=== PATIENT | female | born 1970 | race Caucasian/White ===

== ENCOUNTER 2017-02-19 07:15 | Emergency (ER) | payer MEDICARE, OTHER ==
[~2017-02-19 07:15] MED LIST: LEVO50TA PO
[2017-02-19] MEDS ORDERED: IOHEXOL 300 MG/ML 75 ML VIAL. IV ONE (08:00)
[2017-02-19 08:03] LABS: BASO # 0.1 x10^3/uL (0.0-0.2); BASO % 1 % (0-3); EOS # 0.2 x10^3/uL (0.0-0.7); EOS % 3 % (0-3); HEMATOCRIT 43.3 % (36.0-47.0); HEMOGLOBIN 14.8 g/dL (12.0-15.5); LYMPH # 1.8 x10^3/uL (1.0-4.8); LYMPH % 25 % (24-48); MEAN CORPUSCULAR HEMOGLOBIN 32 pg (25-35); MEAN CORPUSCULAR HGB CONC 34 g/dL (31-37); MEAN CORPUSCULAR VOLUME 94 fL (79-100); MONO # 0.7 x10^3/uL (0.0-1.1); MONO % 10 % (0-9); NEUT # 4.2 x10^3uL (1.8-7.7); NEUT % 60 % (31-73); PLATELET COUNT 260 x10^3/uL (140-400); RED BLOOD COUNT 4.62 x10^6/uL (3.50-5.40); RED CELL DISTRIBUTION WIDTH 12.6 % (11.5-14.5)
--- NOTE | 2017-02-19 08:26 | ED.ADGEN ---
Past History Past Medical History: Hypothyroid, Other Additional Past Medical Histor: multiple sclerosis Past Surgical History: Tubal ligation, Other Smoking: Non-smoker Alcohol Use: Occasionally Drug Use: None Social History Narrative: Adult General Chief Complaint Chief Complaint Altered sensation left side of body HPI HPI Patient is a 46 year old female with a history of multiple sclerosis who presents with onset 6 AM while driving of twitching involving the left eyelid and mild to moderate altered sensation involving the left side of her face, arm , and leg that she describes as feeling like her body was dipped in warm water- - so altered sensation; no tingling or numbness: no headache or blurry vision or double vision; denies motor weakness involving the left arm or leg; was still able to drive with the symptoms; due to the altered sensation she does report some hesitancy and moving her arm and leg; symptoms are similar to a prior exacerbation of her MS. Denies any history of prior strokes. Is not on any maintenance medication for her MS. Denies fever chest pain cough abdominal pain nausea vomiting or diarrhea. Denies any slurred speech or difficulty walking. Review of Systems Review of Systems Constitutional: Denies fever or chills [] Eyes: Denies change in visual acuity, redness, or eye pain [] HENT: Denies nasal congestion or sore throat [] Respiratory: Denies cough or shortness of breath [] Cardiovascular: No additional information not addressed in HPI [] GI: Denies abdominal pain, nausea, vomiting, bloody stools or diarrhea [] : Denies dysuria or hematuria [] Musculoskeletal: Denies back pain or joint pain [] Integument: Denies rash or skin lesions [] Neurologic: Denies headache, focal weakness [] Endocrine: Denies polyuria or polydipsia [] All systems were reviewed and negative except as noted in history of present illness Family History Family History Noncontributory Current Medications Current Medications Current Medications Medications (Trade) Dose Ordered Sig/Zahra Start Time Stop Time Status Last Admin Dose Admin Acetaminophen (Tylenol) 1,000 mg 1X ONCE 02/19/17 10:00 02/19/17 10:01 02/19/17 09:27 1,000 MG Iohexol (Omnipaque 300 Mg/ml) 75 ml 1X ONCE 02/19/17 08:00 02/19/17 08:01 DC 02/19/17 08:06 75 ML Methylprednisolone Sodium Succinate 1000 mg/Sodium Chloride 100 ml @ 100 mls/hr 1X ONCE 02/19/17 10:15 02/19/17 11:14 Allergies Allergies Allergies Coded Allergies Type Severity Reaction Last Updated Verified Penicillins Allergy Intermediate 02/22/16 Yes Physical Exam Physical Exam Constitutional: Well developed, well nourished, no acute distress, non-toxic appearance. [] HENT: Normocephalic, atraumatic, bilateral external ears normal, oropharynx moist, no oral exudates, nose normal. [] Eyes: PERRLA, EOMI, conjunctiva normal, no discharge. No nystagmus [] Neck: Normal range of motion, no tenderness, supple, no stridor. [] Cardiovascular:Heart rate regular rhythm, no murmur [] Lungs & Thorax: Bilateral breath sounds clear to auscultation [] Abdomen: Bowel sounds normal, soft, no tenderness, no masses, no pulsatile masses. [] Skin: Warm, dry, no erythema, no rash. [] Back: No tenderness, no CVA tenderness. [] Extremities: No tenderness, no cyanosis, no clubbing, ROM intact, no edema. [] Neurologic: Alert and oriented X 3, normal motor function with equal watch dial maker strength and no pronator drift, altered sensory function involving the left face arm and leg the patient describes as a warm sensation but not numb or tingling--still feel being touched., no focal deficits noted. Finger to nose and heel to tapia are normal. No nystagmus on eye exam. Renal nerves II through XII are intact except for altered sensation to the left face. Gait initially not tested. [] Psychologic: Affect normal, judgement normal, mood normal. [] NIH score: 1 Current Patient Data Vital Signs Vital Signs Date Time Temp Pulse Resp B/P (MAP) Pulse Ox O2 Delivery O2 Flow Rate FiO2 02/19/17 09:20 77 12 152/111 (125) 99 Room Air 02/19/17 07:15 98.1 Lab Results Laboratory Tests Test 02/19/17 07:35 02/19/17 07:50 02/19/17 08:31 Glucose (Fingerstick) 110 mg/dL (70-99) H White Blood Count 7.0 x10^3/uL (4.0-11.0) Red Blood Count 4.62 x10^6/uL (3.50-5.40) Hemoglobin 14.8 g/dL (12.0-15.5) Hematocrit 43.3 % (36.0-47.0) Mean Corpuscular Volume 94 fL (79-100) Mean Corpuscular Hemoglobin 32 pg (25-35) Mean Corpuscular Hemoglobin Concent 34 g/dL (31-37) Red Cell Distribution Width 12.6 % (11.5-14.5) Platelet Count 260 x10^3/uL (140-400) Neutrophils (%) (Auto) 60 % (31-73) Lymphocytes (%) (Auto) 25 % (24-48) Monocytes (%) (Auto) 10 % (0-9) H Eosinophils (%) (Auto) 3 % (0-3) Basophils (%) (Auto) 1 % (0-3) Neutrophils # (Auto) 4.2 x10^3uL (1.8-7.7) Lymphocytes # (Auto) 1.8 x10^3/uL (1.0-4.8) Monocytes # (Auto) 0.7 x10^3/uL (0.0-1.1) Eosinophils # (Auto) 0.2 x10^3/uL (0.0-0.7) Basophils # (Auto) 0.1 x10^3/uL (0.0-0.2) Prothrombin Time 11.3 SEC (9.4-11.4) Prothrombin Time INR 1.1 (0.9-1.1) PTT 26 SEC (23-33) Total Bilirubin 0.9 mg/dL (0.2-1.0) Direct Bilirubin 0.1 mg/dL (0.0-0.2) Aspartate Amino Transferase (AST) 31 U/L (15-37) Alanine Aminotransferase (ALT) 37 U/L (14-59) Alkaline Phosphatase 108 U/L (46-116) Total Protein 7.7 g/dL (6.4-8.2) Albumin 3.8 g/dL (3.4-5.0) POC Urine HCG, Qualitative hcg negative (Negative) EKG EKG EKG shows normal sinus rhythm rate of 65 no STEMI normal axis QTC normal read by me at 080 3 AM [] Radiology/Procedures Radiology/Procedures CTA head and neck was read as negative per the radiology report. I did personally discuss the case with the radiologist. [] Course & Med Decision Making Course & Med Decision Making Pertinent Labs and Imaging studies reviewed. (See chart for details) 9:30 AM patient was able to ambulate without assistance. Per the nurse. 0 9:50 AM discussed case in detail with Dr. Natali Marrufo neurology who sees the patient. She recommends a prednisone taper 80 mg daily 10 days, 60 mg daily 3 days 40 mg daily 3 days 20 mg daily 3 days and follow-up in the office next available appointment. She agrees with the plan of care and does not feel the patient needs to be admitted or transferred at this time. I've counseled the patient regarding worsening MS symptoms and stroke symptoms and the important need for follow-up and compliance with her steroids. [] Final Impression Final Impression Multiple sclerosis exacerbation, altered sensation left face arm and leg [] Problems: Dragon Disclaimer Dragon Disclaimer This electronic medical record was generated, in whole or in part, using a voice recognition dictation system. MURIEL PATEL MD Feb 19, 2017 08:26
--- NOTE | 2017-02-19 08:29 | EKG ---
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
[2017-02-19 08:33] LABS: ALBUMIN 3.8 g/dL (3.4-5.0); TOTAL BILIRUBIN 0.9 mg/dL (0.2-1.0); TOTAL PROTEIN 7.7 g/dL (6.4-8.2)
--- NOTE | 2017-02-19 08:42 | RAD ---
CTA of the neck and head with contrast 02/19/2017 Clinical history: Numbness and weakness on left side since this morning. Technique: After the intravenous administration of 75 cc of Omnipaque 300, contiguous, 0.625 mm axial sections were obtained through the upper chest, neck and head. 0.5 mm reconstructed axial and multiplanar 3-D MIP and volume rendered 3-D reconstructed images were obtained. One or more of the following individualized dose reduction techniques were utilized for this study: 1. Automated exposure control. 2. Adjustment of the mA and/or kV according to patient size. 3. Use of iterative reconstruction technique. Stenosis calculations for CTA are based upon the NASCET methodology. Findings: Comparison is made to patient's CT scan of the head dated 02/21/2016. The visualized portions of the thoracic aortic arch are within normal limits. The origins of the brachiocephalic, left common carotid and left subclavian arteries are patent. The origin of the right common carotid artery is patent. The origins of both vertebral arteries are patent. The common carotid arteries are within normal limits bilaterally. Mild atherosclerotic/atherosclerotic plaque formation is seen involving both carotid bifurcations, right greater than left. No hemodynamically significant stenosis or area of occlusion is seen. The internal carotid arteries within the neck are within normal limits. No areas of stenosis or occlusion is seen. The right vertebral artery is dominant. Both vertebral arteries demonstrate normal antegrade flow. No area of stenosis or occlusion is seen. Intracranially the petrous, cavernous and supraclinoid portions of the internal carotid arteries are within normal limits. The basilar artery is patent. The anterior, middle and posterior cerebral arteries and their branches are within normal limits. No area of stenosis or occlusion is seen. No intracranial aneurysm is noted. The major dural venous sinuses are patent. No filling defect is seen. No abnormal area of contrast enhancement is seen involving the brain parenchyma. Small mucous retention cysts are seen involving the right maxillary sinus. No abnormal soft tissue mass is seen involving the neck. Degenerative changes are seen involving the uncovertebral and facet joints of the mid and lower cervical spine. Impression: 1. Mild atheromatous/atherosclerotic plaque formation is seen involving both carotid bifurcations, right greater than left. No hemodynamically significant stenosis is seen. 2. No intracranial stenosis or area of occlusion is seen.
[2017-02-19 08:49] LABS: DIRECT BILIRUBIN 0.1 mg/dL (0.0-0.2)
[2017-02-19] MEDS ORDERED: ACETAMINOPHEN 500 MG TABLET PO ONE ×2 (09:27→10:00)
[2017-02-19 10:01] LABS: CALCIUM 8.6 mg/dL (8.5-10.1); CREATININE 0.7 mg/dL (0.6-1.0); GFR 89.7
[2017-02-19 10:02] LABS: POTASSIUM 4.3 mmol/L (3.5-5.1)
[2017-02-19] MEDS ORDERED: methylPREDNISolone SOD SUCC 1,000 MG in IV NORMAL SALINE 100ML 100 ML IV ONE (10:15)
[2017-02-19 11:35] VITALS: BP 141/92
[2017-02-20 15:18] LABS: HEMOGLOBIN ISTAT 14.3 gm/dL
[2017-02-21 11:30] LABS: POTASSIUM ISTAT 6.1 mmol/L (3.5-5.0)
== END 2017-02-19 11:35 | disposition home or self-care (01) ==
LOC: ER 07:15
DX: G35 Multiple sclerosis (principal); R20.2 Paresthesia of skin; E03.9 Hypothyroidism, unspecified; Z88.0 Allergy status to penicillin
CPT/HCPCS: 36415; 70496; 70498; 80048; 80076; 81025; 82947; 85027; 85610; 85730; 93005; 96365; 99285; J2930; Q9967; 80047

== ENCOUNTER 2018-03-09 04:53 | Observation (INO) | payer MEDICARE, OTHER ==
[~2018-03-09] VITALS: Ht 167.6 cm; Wt 91.8 kg
--- NOTE | 2018-03-09 04:55 | ED.ADGEN ---
Past History Past Medical History: Hypothyroid, Other Additional Past Medical Histor: multiple sclerosis Past Surgical History: Tubal ligation, Other Smoking: Non-smoker Alcohol Use: Occasionally Drug Use: None Adult General Chief Complaint Chief Complaint " I woke up chest pain.. here on the Lt... side of my chest... it been going on about 1 1/2 of pain now..." " It is like I got a elbow riding on my chest..wall. HPI HPI Patient is a 47 year old female who presents with above hx and complaints of Lt. chest wall pain. Pt. denies any trauma. Patient denies any coughing or history of fevers. Patient denies previous history of DVT or pulmonary embolisms. Patient does have significant history of MS. Recent travel. No specific ill contacts. Patient not currently on steroids. Patient normally follows with Dr. Simon Review of Systems Review of Systems Constitutional: Denies fever or chills [] Eyes: Denies change in visual acuity, redness, or eye pain [] HENT: Denies nasal congestion or sore throat [] Respiratory: Denies cough or shortness of breath [] Cardiovascular: No additional information not addressed in HPI [] GI: Denies abdominal pain, nausea, vomiting, bloody stools or diarrhea [] : Denies dysuria or hematuria [] Musculoskeletal: Denies back pain or joint pain [] Pain behind Lt leg Integument: Denies rash or skin lesions [] Neurologic: Denies headache, focal weakness or sensory changes [] Endocrine: Denies polyuria or polydipsia [] All other systems were reviewed and found to be within normal limits, except as documented in this note. Family History Family History Adopted- does not know family history Current Medications Current Medications Current Medications Medications (Trade) Dose Ordered Sig/Zahra Start Time Stop Time Status Last Admin Dose Admin Aspirin (Children'S Aspirin) 324 mg 1X ONCE 03/09/18 05:30 03/09/18 05:31 DC 03/09/18 05:30 324 MG Enoxaparin Sodium (Lovenox 100mg Syringe) 100 mg 1X ONCE 03/09/18 05:30 03/09/18 05:31 DC 03/09/18 05:30 100 MG Info (Do NOT chart on this entry -- for MONITORING) 1 each PRN DAILY PRN 03/09/18 05:30 03/09/18 16:41 DC Iohexol (Omnipaque 300 Mg/ml) 75 ml 1X ONCE 03/09/18 05:30 03/09/18 05:31 DC 03/09/18 05:34 75 ML Lactated Ringer's 1,000 ml @ 1,000 mls/hr Q1H 03/09/18 05:30 03/09/18 06:29 DC 03/09/18 06:02 1,000 MLS/HR Allergies Allergies Allergies Coded Allergies Type Severity Reaction Last Updated Verified Penicillins Allergy Intermediate 02/22/16 Yes Physical Exam Physical Exam Constitutional: , moderate distress, non-toxic appearance. [] HENT: Normocephalic, atraumatic, bilateral external ears normal, oropharynx moist, no oral exudates, nose normal. [] Eyes: PERRLA, EOMI, conjunctiva normal, no discharge. [] Neck: Normal range of motion, no tenderness, supple, no stridor. [] Cardiovascular:Heart rate regular rhythm, no murmur [] Lungs & Thorax: Bilateral breath sounds equal at apex on auscultation []does have chest wall tenderness on left side of chest with deep breaths. Abdomen: Bowel sounds normal, soft, no tenderness, no masses, no pulsatile masses. [] Skin: Warm, dry, no erythema, no rash. [] Back: No tenderness, no CVA tenderness. [] Extremities: Area behind left leg is tender - popiteal cyst vs DVT? vs varicosity, , no cyanosis, no clubbing, ROM intact, no edema. [] Neurologic: Alert and oriented X 3, normal motor function, normal sensory function, no focal deficits noted. [] Psychologic: Affect anxious, judgement normal, mood normal. [] Current Patient Data Vital Signs Vital Signs Date Time Temp Pulse Resp B/P (MAP) Pulse Ox O2 Delivery O2 Flow Rate FiO2 03/09/18 05:45 69 14 160/92 (114) 96 Room Air 03/09/18 04:56 98.0 Lab Results Laboratory Tests Test 03/09/18 05:10 White Blood Count 5.3 x10^3/uL (4.0-11.0) Red Blood Count 4.59 x10^6/uL (3.50-5.40) Hemoglobin 14.0 g/dL (12.0-15.5) Hematocrit 41.8 % (36.0-47.0) Mean Corpuscular Volume 91 fL (79-100) Mean Corpuscular Hemoglobin 31 pg (25-35) Mean Corpuscular Hemoglobin Concent 34 g/dL (31-37) Red Cell Distribution Width 15.0 % (11.5-14.5) H Platelet Count 247 x10^3/uL (140-400) Neutrophils (%) (Auto) 45 % (31-73) Lymphocytes (%) (Auto) 38 % (24-48) Monocytes (%) (Auto) 12 % (0-9) H Eosinophils (%) (Auto) 3 % (0-3) Basophils (%) (Auto) 1 % (0-3) Neutrophils # (Auto) 2.4 x10^3uL (1.8-7.7) Lymphocytes # (Auto) 2.0 x10^3/uL (1.0-4.8) Monocytes # (Auto) 0.7 x10^3/uL (0.0-1.1) Eosinophils # (Auto) 0.2 x10^3/uL (0.0-0.7) Basophils # (Auto) 0.1 x10^3/uL (0.0-0.2) Erythrocyte Sedimentation Rate 16 (0-25) Prothrombin Time 11.4 SEC (9.4-11.4) Prothrombin Time INR 1.1 (0.9-1.1) PTT 25 SEC (23-33) D-Dimer (Celena) 0.45 mg/L (0.00-0.50) Sodium Level 140 mmol/L (136-145) Potassium Level 3.5 mmol/L (3.5-5.1) Chloride Level 106 mmol/L (98-107) Carbon Dioxide Level 31 mmol/L (21-32) Anion Gap 3 (6-14) L Blood Urea Nitrogen 6 mg/dL (7-20) L Creatinine 0.7 mg/dL (0.6-1.0) Estimated GFR (Cockcroft-Gault) 89.3 Glucose Level 151 mg/dL (70-99) H Calcium Level 8.7 mg/dL (8.5-10.1) Magnesium Level 2.1 mg/dL (1.8-2.4) Total Bilirubin 0.7 mg/dL (0.2-1.0) Direct Bilirubin 0.2 mg/dL (0.0-0.2) Aspartate Amino Transferase (AST) 51 U/L (15-37) H Alanine Aminotransferase (ALT) 58 U/L (14-59) Alkaline Phosphatase 149 U/L (46-116) H Creatine Kinase 113 U/L (26-192) Creatine Kinase MB (Mass) 0.9 ng/mL (0.0-3.6) Creatine Kinase MB Relative Index 0.8 % (0-4) Troponin I Quantitative < 0.017 ng/mL (0-0.055) C-Reactive Protein 8.2 mg/L (0-3.3) H IC-Vab-V-Type Natriuretic Peptide 20 pg/mL (0-124) Total Protein 7.1 g/dL (6.4-8.2) Albumin 3.5 g/dL (3.4-5.0) Triglycerides Level 191 mg/dL (0-150) H Cholesterol Level 251 mg/dL (0-200) H LDL Cholesterol, Calculated 173 mg/dL (0-100) H VLDL Cholesterol, Calculated 38 mg/dL (0-40) Non-HDL Cholesterol Calculated 211 mg/dL (0-129) H HDL Cholesterol 40 mg/dL (40-60) Cholesterol/HDL Ratio 6.0 Lipase 198 U/L (73-393) Thyroid Stimulating Hormone (TSH) 6.435 uIU/mL (0.358-3.740) EKG EKG I interpretation of EKG shows a sinus rhythm at 67 bpm with no acute morphology changes[] Radiology/Procedures Radiology/Procedures My interpretation of chest x-ray shows[]no acute cardiopul. changes. CT of Chest and US legs pending at time of admission. Course & Med Decision Making Course & Med Decision Making Pertinent Labs and Imaging studies reviewed. (See chart for details) Discussed presentation, testing and t.x plan with Dr. Romero- will admit for further eval and tx.- Cardiology consult. [] Final Impression Final Impression 1. Chest Pain[] 2. HTN 3. MS 4. Hypothyroid 5. Elevated Lipids 6. DM Dragon Disclaimer Dragon Disclaimer This electronic medical record was generated, in whole or in part, using a voice recognition dictation system. HERMINIA CAUSEY MD Mar 09, 2018 04:55
[2018-03-09] MEDS ORDERED: CONTRAST GIVEN MC PRN (05:30)
[2018-03-09] MEDS ORDERED: ENOXAPARIN ** NOTE DOSE ** SYRINGE SQ ONE (05:30)
[2018-03-09] MEDS ORDERED: IV RINGERS SOLUTION,LACTATED 1,000 ML IV SCH (05:30)
[2018-03-09] MEDS ORDERED: ASPIRIN 81 MG TAB.CHEW PO ONE (05:30)
[2018-03-09] MEDS ORDERED: IOHEXOL 300 MG/ML 75 ML VIAL. IV ONE (05:30)
[2018-03-09 05:41] LABS: BASO # 0.1 x10^3/uL (0.0-0.2); BASO % 1 % (0-3); EOS # 0.2 x10^3/uL (0.0-0.7); EOS % 3 % (0-3); HEMATOCRIT 41.8 % (36.0-47.0); LYMPH % 38 % (24-48); MEAN CORPUSCULAR HEMOGLOBIN 31 pg (25-35); MEAN CORPUSCULAR HGB CONC 34 g/dL (31-37); MEAN CORPUSCULAR VOLUME 91 fL (79-100); MONO # 0.7 x10^3/uL (0.0-1.1); MONO % 12 % (0-9); NEUT # 2.4 x10^3uL (1.8-7.7); NEUT % 45 % (31-73); PLATELET COUNT 247 x10^3/uL (140-400); RED BLOOD COUNT 4.59 x10^6/uL (3.50-5.40); WHITE BLOOD COUNT 5.3 x10^3/uL (4.0-11.0)
[2018-03-09] MEDS ORDERED: MORPHINE SULFATE 2 MG/ML DISP.SYRIN. IV PRN (06:15)
[2018-03-09] MEDS ORDERED: NITROGLYCERIN OINT 1 GM PACKET. TP ONE ×2 (06:15)
[2018-03-09 06:19] LABS: ALBUMIN 3.5 g/dL (3.4-5.0); C REACTIVE PROTEIN 8.2 mg/L (0-3.3); CALCIUM 8.7 mg/dL (8.5-10.1); CREATININE 0.7 mg/dL (0.6-1.0); DIRECT BILIRUBIN 0.2 mg/dL (0.0-0.2); GFR 89.3; MAGNESIUM 2.1 mg/dL (1.8-2.4); POTASSIUM 3.5 mmol/L (3.5-5.1); TOTAL BILIRUBIN 0.7 mg/dL (0.2-1.0); TOTAL PROTEIN 7.1 g/dL (6.4-8.2)
--- NOTE | 2018-03-09 06:21 | EKG ---
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
--- NOTE | 2018-03-09 06:26 | RAD ---
INDICATION: [id number] Omni 300 75cc PE protocol: Chest pain, short of air, weakness. Hx: MS COMPARISON: None. TECHNIQUE: Axial CT images obtained through the chest. Intravenous contrast utilized. Angiogram 3D images processed per protocol. One or more of the following individualized dose reduction techniques were utilized for this examination: 1. Automated exposure control; 2. Adjustment of the mA and/or kV according to patient size; 3. Use of iterative reconstruction technique. FINDINGS: Mild scattered cystic changes of lungs. There are couple sub-4 mm pulmonary nodules in the right lower lung anteriorly. Mild patchy groundglass opacities. Visualized portion of liver is low-attenuation. Nonspecific but can be seen with fatty infiltration. A ascending thoracic aorta measures up to approximately 35 mm. Motion obscures a portion of the ascending thoracic aorta but no definite thoracic aortic dissection seen. Degenerative changes of the spine. No central pulmonary embolus. IMPRESSION: No central pulmonary embolus. Mild patchy groundglass opacities. Could be from hypoventilatory changes but mild regions of airway inflammation not excluded. Couple of sub-4 mm pulmonary nodules. Fleischner Society recommendations for solitary solid lung nodule follow up.: In a low risk patient: <6mm - No follow up required. 6-8mm - 6-[address], then CT at 18-24 months. >8mm - CT at 3 months, PET/CT or tissue sampling. In a high risk patient (history of smoking or other known risk factors): <6mm - Follow up CT at 12 months. 6-8mm - 6-[address], then CT at 18-24 months. >8mm - CT at 3 months, PET/CT or tissue sampling. Fleischner Society recommendations for multiple solid lung nodule follow up.: In a low risk patient: <6mm - No follow up required. 6-8mm - 3-[address], then CT at 18-24 months. >8mm - CT at 3-6 months, then at 18-24 months. PET/CT or tissue sampling based on most suspicious nodule. In a high risk patient (history of smoking or other known risk factors): <6mm - Follow up CT at 12 months. 6-8mm - 3-[address], then CT at 18-24 months. >8mm - CT at 3-6 months, PET/CT or tissue sampling option based on most suspicious nodule. Electronically signed by: Eb Michale MD (03/09/2018 6:23 AM) [facility]
[2018-03-09] MEDS ORDERED: MORPHINE SULFATE 4 MG/ML DISP.SYRIN. IV ONE (06:30)
[2018-03-09 06:37] LABS: SEDIMENTATION RATE 16 (0-25)
--- NOTE | 2018-03-09 07:30 | NUR ---
The patient, JAVIER ROSALES, 47 y/o, F admitted by FRIDA CAROLINA MD, was given written information regarding hospital policies, unit procedures and contact persons. Valuables were checked and left in room. Patient alert and oriented x3, able to make needs known. Denies complaints at this time. States she had chest pain that awakened her out of her sleep. Awaiting cardiology and Hospitalist to see patient. Pt able to verbalize POC, will continue to monitor.
--- NOTE | 2018-03-09 07:47 | RAD ---
Chest radiograph 03/09/2018 5:02 AM INDICATION: Chest pain, shortness of air COMPARISON: Chest radiograph February 21, 2016 TECHNIQUE: Frontal and lateral views of the chest are provided. FINDINGS: The cardiomediastinal silhouette is within normal limits. There are no pleural effusions. There is no pulmonary vascular congestion. There is no pneumothorax. The lungs are clear. No significant osseous abnormality is identified. IMPRESSION: No acute cardiopulmonary process. Electronically signed by: Natalia Hall MD (03/09/2018 7:44 AM) [facility]
[2018-03-09 07:52] VITALS: BP 126/86
--- NOTE | 2018-03-09 08:00 | NUR ---
Echo ordered and Cardiology consulted for Chest pressure. Patient resting comfortably in bed at this time.
[2018-03-09] MEDS ORDERED: ASPIRIN 81 MG TAB.CHEW PO SCH (09:00)
--- NOTE | 2018-03-09 09:55 | PDOC2 ---
JAMES COVINGTON APRN 03/09/18 0955: CONSULT Date of Admission DATE: 03/09/18 TIME: 09:53 Reason for Consult: cp Problem List Problems Medical Problems: (1) Chest pain Status: Acute History of Present Illness Ms Grady is a 47 year old female who presented to the ED with complaints of chest pain. She reports onset at rest, actually woke with discomfort. She describes a sharp pain ("stich") in her left side followed by pressure in her left chest. She reports some increase with deep inspiration but no increase with exertion. She denies any associated symptoms. She reports nitro paste placed without any improvement but some improvement with morphine. She reports some mild reproducible discomfort in left upper chest with palpation but says this discomfort is different. The left lateral pain is resolved. She denies any dyspnea, palpitations, congestive symptoms or edema. She denies any presyncope or syncope. She does report dizziness with balance problems for which she takes meclizine regularly. She denies any issues with functional capacity except related to balance issues. She does admit that she has not been as active due to this and due to the heat. She does have stairs in house that she denies any symptoms with walking up and down. Past Medical History MS and hypothyroidism CENTRAL NERVOUS SYSTEM: Vertigo Musculoskeletal: Other (Degenerative disc disease lower c spine) Past Surgical History: Tubal Ligation, Tonsillectomy, Other (knee surgery) Family History unknown as she is adopted Social History , no smoking, no significant ETOH, no illicit drugs Current Medications Home medications include Synthroid, Aubagio, Zoloft, Cetrizine and Meclizine Current Medications Aspirin (Children'S Aspirin) 324 mg 1X ONCE PO Last administered on 03/09/18at 05:30; Start 03/09/18 at 05:30; Stop 03/09/18 at 05:31; Status DC Enoxaparin Sodium (Lovenox 100mg Syringe) 100 mg 1X ONCE SQ Last administered on 03/09/18at 05:30; Start 03/09/18 at 05:30; Stop 03/09/18 at 05:31; Status DC Lactated Ringer's 1,000 ml @ 1,000 mls/hr Q1H IV Last administered on at 06:02; Start 03/09/18 at 05:30; Stop 03/09/18 at 06:29; Status DC Iohexol (Omnipaque 300 Mg/ml) 75 ml 1X ONCE IV Last administered on 03/09/18at 05:34; Start 03/09/18 at 05:30; Stop 03/09/18 at 05:31; Status DC Info (Do NOT chart on this entry -- for MONITORING) 1 each PRN DAILY PRN MC SEE COMMENTS; Start 03/09/18 at 05:30; Stop 03/11/18 at 05:29 Nitroglycerin (Nitro-Bid Oint) 1 inch 1X ONCE TP Last administered on at 06:12; Start 03/09/18 at 06:15; Stop 03/09/18 at 06:16; Status DC Nitroglycerin (Nitro-Bid Oint) 1 inch 1X ONCE TP ; Start 03/09/18 at 06:15; Stop 03/09/18 at 06:16; Status UNV Morphine Sulfate (Morphine 4mg Syringe) 4 mg 1X ONCE IV Last administered on at 06:32; Start 03/09/18 at 06:30; Stop 03/09/18 at 06:31; Status DC Morphine Sulfate (Morphine 2mg Syringe) 2 mg PRN Q2HR PRN IV PAIN; Start at 06:15; Stop 03/10/18 at 06:14 Enoxaparin Sodium (Lovenox 100mg Syringe) 100 mg BID SQ ; Start 03/09/18 at 21:00 ; Stop 03/09/18 at 21:00; Status DC Nitroglycerin (Nitro-Bid Oint) 1 inch Q8HRS TP ; Start 03/09/18 at 14:00 Aspirin (Children'S Aspirin) 81 mg DAILY PO ; Start 03/09/18 at 09:00 Enoxaparin Sodium (Lovenox 100mg Syringe) 90 mg BID SQ ; Start 03/09/18 at 21:00 Active Scripts Active Synthroid (Levothyroxine Sodium) 50 Mcg Tablet 1 Tab PO DAILY Allergies: Coded Allergies: Penicillins (Verified Allergy, Intermediate, 02/22/16) Review of System as per HPI General: Alert, Oriented X3, Cooperative, No acute distress HEENT: Atraumatic, EOMI, Mucous membr. moist/pink Lungs: Clear to auscultation, Normal air movement Heart: Regular rate, Normal S1, Normal S2, Other (no gallops, clicks or rubs) Abdomen: Normal bowel sounds, Soft, No tenderness Extremities: No cyanosis, No edema, Normal pulses Neuro: Normal speech, Strength at 5/5 X4 ext Psych/Mental Status: Mental status NL, Mood NL VITALS Vital Signs Date Time Temp Pulse Resp B/P (MAP) Pulse Ox O2 Delivery O2 Flow Rate FiO2 03/09/18 07:52 98.3 63 20 126/86 (99) 93 Room Air Labs Laboratory Tests Test 03/09/18 05:10 White Blood Count 5.3 x10^3/uL (4.0-11.0) Red Blood Count 4.59 x10^6/uL (3.50-5.40) Hemoglobin 14.0 g/dL (12.0-15.5) Hematocrit 41.8 % (36.0-47.0) Mean Corpuscular Volume 91 fL (79-100) Mean Corpuscular Hemoglobin 31 pg (25-35) Mean Corpuscular Hemoglobin Concent 34 g/dL (31-37) Red Cell Distribution Width 15.0 % (11.5-14.5) Platelet Count 247 x10^3/uL (140-400) Neutrophils (%) (Auto) 45 % (31-73) Lymphocytes (%) (Auto) 38 % (24-48) Monocytes (%) (Auto) 12 % (0-9) Eosinophils (%) (Auto) 3 % (0-3) Basophils (%) (Auto) 1 % (0-3) Neutrophils # (Auto) 2.4 x10^3uL (1.8-7.7) Lymphocytes # (Auto) 2.0 x10^3/uL (1.0-4.8) Monocytes # (Auto) 0.7 x10^3/uL (0.0-1.1) Eosinophils # (Auto) 0.2 x10^3/uL (0.0-0.7) Basophils # (Auto) 0.1 x10^3/uL (0.0-0.2) Erythrocyte Sedimentation Rate 16 (0-25) Prothrombin Time 11.4 SEC (9.4-11.4) Prothromb Time International Ratio 1.1 (0.9-1.1) Activated Partial Thromboplast Time 25 SEC (23-33) D-Dimer (Celena) 0.45 mg/L (0.00-0.50) Sodium Level 140 mmol/L (136-145) Potassium Level 3.5 mmol/L (3.5-5.1) Chloride Level 106 mmol/L (98-107) Carbon Dioxide Level 31 mmol/L (21-32) Anion Gap 3 (6-14) Blood Urea Nitrogen 6 mg/dL (7-20) Creatinine 0.7 mg/dL (0.6-1.0) Estimated GFR (Cockcroft-Gault) 89.3 Glucose Level 151 mg/dL (70-99) Calcium Level 8.7 mg/dL (8.5-10.1) Magnesium Level 2.1 mg/dL (1.8-2.4) Total Bilirubin 0.7 mg/dL (0.2-1.0) Direct Bilirubin 0.2 mg/dL (0.0-0.2) Aspartate Amino Transf (AST/SGOT) 51 U/L (15-37) Alanine Aminotransferase (ALT/SGPT) 58 U/L (14-59) Alkaline Phosphatase 149 U/L (46-116) Creatine Kinase 113 U/L (26-192) Creatine Kinase MB (Mass) 0.9 ng/mL (0.0-3.6) Creatine Kinase MB Relative Index 0.8 % (0-4) Troponin I Quantitative < 0.017 ng/mL (0-0.055) C-Reactive Protein 8.2 mg/L (0-3.3) EK-Ejh-Z-Type Natriuretic Peptide 20 pg/mL (0-124) Total Protein 7.1 g/dL (6.4-8.2) Albumin 3.5 g/dL (3.4-5.0) Lipase 198 U/L (73-393) Images EKG - sinus rhythm, nonspecific st/t changes CTA chest - IMPRESSION: No central pulmonary embolus. Mild patchy groundglass opacities. Could be from hypoventilatory changes but mild regions of airway inflammation not excluded. Couple of sub-4 mm pulmonary nodules. Assessment/Plan 1. Chest pain - serial enzymes, check lipids, check echo, Aspirin. Further recs after results. 2. hypertension - elevated blood pressure on admission to ED. No history of hypertension and blood pressures controlled since admission. Await echo. 3. unknown lipid status - check lipids 4. multiple sclerosis - per PCP 5. vertigo - per PCP VALERIY LO MD 03/09/18 1640: CONSULT Assessment/Plan Patient seen and examined. Agree with METAL CHECKER's assessment and plan. Chest pain with atypical features. Myocardial infarction ruled out. 2-D echo showed normal LV function without any wall motion abnormalities. Plan for Lexiscan nuclear stress test as an outpatient. Thank you for your consultation. JAMES COVINGTON APRN Mar 09, 2018 09:55 VALERIY LO MD Mar 09, 2018 16:40
[2018-03-09] MEDS ORDERED: TERI14TA PO (10:11)
[2018-03-09] MEDS ORDERED: SERT50TA8 PO (10:11)
[2018-03-09] MEDS ORDERED: CETI10TA16 PO (10:11)
[2018-03-09] MEDS ORDERED: LEVO75TA5 PO (10:11)
[2018-03-09] MEDS ORDERED: MECL12.52 PO (10:11)
[2018-03-09 10:30] VITALS: BP 104/65
[2018-03-09] MEDS ORDERED: MORPHINE SULFATE 4 MG/ML DISP.SYRIN. IV PRN (10:30)
[2018-03-09] MEDS ORDERED: KETOROLAC 30 MG/ML VIAL. IV ONE (10:30)
--- NOTE | 2018-03-09 11:22 | NUR ---
Patient resting comfortably at this time, denies complaints of chest pain or pressures states that she is just tired now.
[2018-03-09 12:31] LABS: AMPHETAMINE/METHAMPHETAMINE NEG (NEG); BARBITURATES NEG (NEG); BENZODIAZEPINES NEG (NEG); CANNABINOIDS NEG (NEG); COCAINE NEG (NEG); METHADONE NEG (NEG); OPIATES POS (NEG); PHENCYCLIDINE NEG (NEG)
[2018-03-09 12:32] LABS: BILIRUBIN,URINE NEG (NEG); CLARITY,URINE CLEAR; COLOR,URINE YELLOW; GLUCOSE,URINE NEG (NEG)
[2018-03-09 12:33] LABS: BACTERIA,URINE FEW /HPF (0-FEW); NITRITE,URINE NEG (NEG); RBC,URINE 0 /HPF (0-2); SQUAMOUS EPITHELIAL CELL,UR FEW /LPF; UROBILINOGEN,URINE 0.2 mg/dL (0.2 mg/dL)
--- NOTE | 2018-03-09 12:47 | HP ---
ADMIT DATE: 03/09/2018 HISTORY OF PRESENT ILLNESS: The patient is a 47-year-old female patient who came to the Emergency Room complaining of chest pain that woke her up that apparently has been going on for almost 1 and half hour prior to arrival to the Emergency Room. She describes it as if she is having an elbow riding on her chest wall that she rated 6/10 in severity. Denied any nausea or vomiting. Denied any shortness of breath. Denied any radiation to the left arm, left shoulder, or left side of the neck or jaw. When I saw her, she continued to have ongoing pain that apparently was improved with nitro paste. She was evaluated in the Emergency Room. Her EKG showed that she was in sinus rhythm at 67 beats per minute with no acute morphology changes. Her chest x-ray was unremarkable and her CT scan of the chest with CT angio of the chest showed that there is no central pulmonary emboli. Mild patchy ground glass opacities could be from hypoventilatory changes and mild regions of airway inflammation not excluded. The patient was admitted. Her first set of cardiac enzymes showed the troponin to be less than 0.017. The patient was admitted to the ICU to do 2 more sets of cardiac enzymes, to consult the crew car driver, and check her fasting lipid profile. PAST MEDICAL HISTORY: Significant for multiple sclerosis diagnosed in 1992. The patient, however, still ambulatory and she walks with a cane. She is known to have hypothyroidism; however, she does not have any of the major risk factors for coronary artery disease, namely she is not diabetic, she has no hypertension or hyperlipidemia or at least she is not known to have hyperlipidemia. PAST SURGICAL HISTORY: Significant for right knee surgery, tubal ligation, and tonsillectomy. ALLERGIES: She is allergic to PENICILLIN. MEDICATIONS: She is currently on the following medications: Cetirizine 10 mg once a day. She is on sertraline 50 mg at bedtime, meclizine 12.5 mg at bedtime, levothyroxine sodium 75 mg daily, and she is Aubagio 14 mg tablet at bedtime. FAMILY HISTORY: She has 5 biological sisters, all younger and all of them have thyroid disease. Her mother is alive at the age of 65 and apparently healthy. She does not know her biological father. SOCIAL HISTORY: She is , has 5 sons. She does not smoke, drink alcohol, or use recreational drugs. She is currently on disability. REVIEW OF SYSTEMS: The patient denied any blurring of vision, cataract, glaucoma, or macular degeneration. Denied any earache, tinnitus, or sensorineural deafness. Denied any nosebleeds, stuffy nose, or postnasal drip. Denied any sore throat, sore tongue, toothache, hoarseness of voice, or difficulty swallowing. Denied any nausea, vomiting, diarrhea, or constipation. Denied any hematemesis, melena, or hematochezia. Denied any dysuria, frequency, or hematuria. Did complain of chest pain. Denied any shortness of breath, orthopnea, paroxysmal nocturnal dyspnea. Denied any cough, phlegm, or hemoptysis. Denied any chills, rigors, or fever. PHYSICAL EXAMINATION: GENERAL: On arrival to the Emergency Room, she looked well and was clearly in no apparent respiratory distress. No pallor, jaundice, cyanosis, or thyromegaly. No jugular venous distention. No limb edema. VITAL SIGNS: Her heart rate was 68, blood pressure was 160/90, temperature was 98, respiratory rate 20, and oxygen saturation was 96% on room air. HEAD, EYES, EARS, NOSE, AND THROAT: Showed normocephalic, atraumatic. NECK: Supple. HEART: Showed normal first and second sounds. No gallop, rub, or murmur. CHEST: Clear to auscultation. No crepitation or rhonchi. ABDOMEN: Distended, soft, nontender. NEUROLOGIC: She is awake, alert, responding appropriately. All cranial nerves intact. She moves extremities without difficulty. She is able to walk with a cane. LABORATORY DATA: Her lab work showed a white cell count of 5300, hemoglobin 14, hematocrit 42, MCV 91, and platelet count 247,000. Serum sodium was 140, potassium 3.5, chloride 106, bicarbonate 31, anion gap of 3, BUN 6, creatinine 0.7. Estimated GFR was 89 mL per minute. Her glucose of 151, calcium was 8.7, magnesium was 2.1. Total bilirubin, AST, ALT, and alkaline phosphatase were normal. Total protein was 7.1, albumin was 3.5. C-reactive protein was 8.2. Her sedimentation rate was 60 mm per hour. Prothrombin time was 11.4, INR 1.1, aPTT 25 and D-dimer was 0.45 and as I stated earlier, her EKG was in sinus rhythm with no ST segment elevation or depression. Chest x-ray was clear and CT angio of the chest showed no central pulmonary emboli. ASSESSMENT AND PLAN: The patient was admitted to ICU. We will do 2 more sets of cardiac enzyme, consult the crew car driver, check her lipid profile, and decide on further management accordingly. FRIDA CAROLINA MD DR: BETHANY/chasity JOB#: [id number] / [id number]
[2018-03-09] MEDS ORDERED: NITROGLYCERIN OINT 1 GM PACKET. TP SCH (14:00)
--- NOTE | 2018-03-09 15:03 | CARD ---
MR#: [id number] Date of Study: 03/09/2018 Ordering Physician: FRIDA CAROLINA, Referring Physician: FRIDA CAROLINA Tech: Annamaria Salinas RDCS APPROVED REPORT EXAM: Two-dimensional and M-mode echocardiogram with Doppler and color Doppler. Other Information Quality : Good INDICATION Chest Pain 2D DIMENSIONS RVDd3.1 (2.9-3.5cm)Left Atrium(2D)3.8 (1.6-4.0cm) IVSd0.8 (0.7-1.1cm)Aortic Root(2D)2.7 (2.0-3.7cm) LVDd4.7 (3.9-5.9cm)LVOT Diameter2.1 (1.8-2.4cm) PWd0.8 (0.7-1.1cm)LVDs2.4 (2.5-4.0cm) FS (%) 30.0 %SV80.5 ml LVEF(%)60.0 (>50%) Aortic Valve AoV Peak Josiah.135.1cm/sAoV VTI28.3cm AO Peak GR.7.3mmHgLVOT Peak Josiah.128.3cm/s LVOT VTI 27.69cmAO Mean GR.4mmHg MARGE (VMAX)3.97ho3WZH (VTI)3.38cm2 Mitral Valve MV E Duwfjdqk56.0cm/sMV DECEL WSFQ015rg MV A Uamtiheu761.3cm/sE/A Ratio0.9 Tricuspid Valve TR P. Lvltnbrl779ao/sRAP TQFJAYYU1qnQg TR Peak Gr.30ntBfMNUW99bgGh Pulmonary Vein S1 Qhduqdfk19.2cm/sD2 Foudsmlm94.8cm/s LEFT VENTRICLE The left ventricle is normal size. There is normal left ventricular wall thickness. The left ventricu lar systolic function is normal. The Ejection Fraction is 55-60%. There is normal LV segmental wall m otion. RIGHT VENTRICLE The right ventricle is normal size. The right ventricular systolic function is normal. ATRIA The left atrium size is normal. The right atrium size is normal. The interatrial septum is intact wit h no evidence for an atrial septal defect or patent foramen ovale as noted on 2-D or Doppler imaging. AORTIC VALVE The aortic valve is normal in structure and function. Doppler and Color Flow revealed trace aortic re gurgitation. There is no significant aortic valvular stenosis. MITRAL VALVE The mitral valve is normal in structure and function. There is no evidence of mitral valve prolapse. There is no mitral valve stenosis. Doppler and Color-flow revealed trace mitral regurgitation. TRICUSPID VALVE The tricuspid valve is normal in structure and function. Doppler and Color Flow revealed trace to mil d tricuspid regurgitation. The PA pressure was estimated at 26 mmHg. There is no tricuspid valve sten osis. PULMONIC VALVE The pulmonic valve is not well visualized. Doppler and Color Flow revealed no pulmonic valvular regur gitation. There is no pulmonic valvular stenosis. GREAT VESSELS The aortic root is normal in size. The ascending aorta is normal in size. The IVC is normal in size a nd collapses >50% with inspiration. PERICARDIAL EFFUSION There is no evidence of significant pericardial effusion. Critical Notification Critical Value: No <Conclusion> The left ventricular systolic function is normal. The Ejection Fraction is 55-60%. There is normal LV segmental wall motion. Trace mitral regurgitation. Trace to mild tricuspid regurgitation. The PA pressure was estimated at 26 mmHg. There is no evidence of significant pericardial effusion. Signed by : Alistair Horan, Electronically Approved : 03/09/2018 15:02:26
[2018-03-09 15:41] VITALS: BP 114/73
--- NOTE | 2018-03-09 16:09 | NUR ---
Dr. Dunn here at this time to see patient, states she is cleared from cardiology and okay to go home. Patient states she is not having any discomfort at this time and would like to go home. IV discontinued at this time. Echo results back and within normal limits. Orders to dc third cardiac enzyme.
[2018-03-09] MEDS ORDERED: ACETAMINOPHEN 500 MG TABLET PO PRN (16:30)
--- NOTE | 2018-03-09 16:36 | NUR ---
Patient ambulated off unit with , understands discharge instructions at this time.
--- NOTE | 2018-03-09 18:36 | DS ---
DATE OF DISCHARGE: 03/09/2018 HISTORY OF PRESENT ILLNESS: The patient is a 47-year-old female patient, who was admitted with a complaint of chest pain that started about an hour and half prior to arrival to the Emergency Room, described it as having an elephant riding on her chest wall that was rated about 6/10 in severity. Denied any nausea or vomiting. Denied any shortness of breath. Denied any radiation to left arm, left shoulder or left side of the neck or jaw. Her EKG was sinus rhythm with no evidence of any ST segment elevation or depression. Her chest x-ray was unremarkable. CT scan of the chest, which showed no evidence of central pulmonary emboli. She was seen by the baker helper and has had 3 sets of cardiac enzymes, which were negative and a decision was made to discharge her home and to have a nuclear stress test as an outpatient. PHYSICAL EXAMINATION: GENERAL: When I examined her in the afternoon, she looked well and was clearly in no apparent respiratory distress, pale, but no jaundice, cyanosis, or thyromegaly. No jugular venous distension. No limb edema. VITAL SIGNS: Her heart rate was 72, blood pressure 114/73, temperature was 98.4, respiratory rate was 18, and oxygen saturation was 93%. HEAD, EYES, EARS, NOSE AND THROAT: Showed normocephalic, atraumatic. NECK: Supple. HEART: Showed normal first and second heart sounds with no gallop, rub or murmur. CHEST: Clear to auscultation. No crepitation or rhonchi. ABDOMEN: Distended, soft, nontender. No guarding or rigidity. No organomegaly. Hernial orifice intact. Bowel sounds normal. NEUROLOGIC: She is awake, alert, responding appropriately. Cranial nerves intact. EXTREMITIES: She moves extremities without difficulty. LABORATORY DATA: Showed a white cell count 5300, hemoglobin 14, hematocrit 42, MCV 91, and platelet count 247,000. Her chemistry showed a serum sodium 140, potassium 3.5, chloride 106, bicarbonate 31, anion gap of 3, BUN 6, creatinine 0.7, estimated GFR was 89 mL per minute. Her glucose 151, calcium was 8.7, magnesium 2.1. Total bilirubin, AST, ALT, alkaline phosphatase were normal. Total protein was 7.1, albumin 3.5. She has 2 sets of cardiac enzymes showed troponin to be less than 0.017. Her serum triglycerides 191. Total cholesterol was 151, LDL cholesterol was 73, VLDL was 38, HDL cholesterol was 40, and the ratio was 6. Her TSH was slightly elevated , and lipase was 198. Urinalysis was unremarkable. Toxic screen was negative. Prothrombin time was 11.4, INR 1.1, aPTT was 25. D-dimer was 0.45. DISCHARGE MEDICATIONS: She was discharged home to continue on cetirizine 10 mg once a day, levothyroxine sodium 75 mcg once a day, meclizine 12.5 mg at bedtime, sertraline 50 mg at bedtime, Teriflunomide 14 mg one tablet at bedtime. FINAL DISCHARGE DIAGNOSES: Chest pain, multiple sclerosis, hypothyroidism. The patient was advised to change her lifestyle and will have dobutamine stress echocardiography as an outpatient. FRIDA CAROLINA MD DR: BETHANY/chasity JOB#: [id number] / [id number]
[2018-03-09] MEDS ORDERED: TERIFLUNOMIDE PO SCH (21:00)
[2018-03-09] MEDS ORDERED: MECLIZINE 12.5 MG TABLET. PO SCH (21:00)
[2018-03-09] MEDS ORDERED: NON FORMULARY ITEM (Meclizine Hcl 1 TAB) PO SCH (21:00)
[2018-03-09] MEDS ORDERED: CETIRIZINE HCL 10 MG TABLET PO SCH (21:00)
[2018-03-09] MEDS ORDERED: SERTRALINE 50 MG TABLET. PO SCH (21:00)
[2018-03-09] MEDS ORDERED: ENOXAPARIN ** NOTE DOSE ** SYRINGE SQ SCH ×2 (21:00)
[2018-03-10 03:10] LABS: HEMOGLOBIN A1C 6.6 % (4.8-5.6)
[2018-03-10] MEDS ORDERED: LEVOTHYROXINE 75 MCG TABLET PO SCH (07:00)
== END 2018-03-09 16:40 | disposition home or self-care (01) ==
LOC: ER 04:53 → ICU 06:00 → INTOOBSV 06:00
PROVIDERS: ADMIT Internal Medicine; ATTEND Internal Medicine
DX: R07.89 Other chest pain (principal); G35 Multiple sclerosis; E03.9 Hypothyroidism, unspecified; R42 Dizziness and giddiness; I10 Essential (primary) hypertension; Z79.899 Other long term (current) drug therapy
CPT/HCPCS: 36415; 71046; 71275; 80048; 80061; 80076; 80307; 81001; 82553; 83036; 83690; 83735; 83880; 84443; 84484; 85025; 85379; 85610; 85651; 85730; 86140; 87641; 93005; 93306; 96361; 96372; 96374; 96375; 99285; G0378; J1650; J1885; J2270; J7120; Q9967; G0379; G0479

== ENCOUNTER 2018-05-07 05:11 | Emergency (ER) | payer OTHER ==
[~2018-05-07] VITALS: Ht 167.6 cm; Wt 91.2 kg
[~2018-05-07 05:11] MED LIST changes: +CETI10TA16 PO; +LEVO75TA5 PO; +MECL12.52 PO; +SERT50TA8 PO; +TERI14TA PO
--- NOTE | 2018-05-07 05:40 | ED.ADGEN ---
Past History Past Medical History: Other Additional Past Medical Histor: multiple sclerosis Past Surgical History: Tonsillectomy, Other Smoking: Non-smoker Alcohol Use: None Drug Use: None Adult General Chief Complaint Chief Complaint Left wrist and shoulder pain post fall HPI HPI Patient was walking her dog at 1 AM this morning she tripped and fell at her left wrist with injury. She also noted injury to her left shoulder. She denies any blunt head trauma loss of consciousness. She skinned her left knee but she' s been ambulatory without any pain. Review of Systems Review of Systems Constitutional: Denies fever or chills Eyes: Denies change in visual acuity, redness, or eye pain HENT: Denies nasal congestion or sore throat Respiratory: Denies cough or shortness of breath Cardiovascular: No additional information not addressed in HPI GI: Denies abdominal pain, nausea, vomiting, bloody stools or diarrhea : Denies dysuria or hematuria Musculoskeletal: Denies back pain with left wrist and shoulder pain Integument: Denies rash or skin lesions, left knee abrasion Neurologic: Denies headache, focal weakness or sensory changes Endocrine: Denies polyuria or polydipsia All other systems were reviewed and found to be within normal limits, except as documented in this note. Current Medications Current Medications Current Medications Medications (Trade) Dose Ordered Sig/Zahra Start Time Stop Time Status Last Admin Dose Admin Diphtheria/ Tetanus/Acell Pertussis (Boostrix) 0.5 ml ONCE ONCE 05/07/18 06:00 05/07/18 06:01 DC 05/07/18 05:51 0.5 ML Allergies Allergies Allergies Coded Allergies Type Severity Reaction Last Updated Verified Penicillins Allergy Intermediate 02/22/16 Yes Physical Exam Physical Exam Constitutional: Well developed, well nourished, no acute distress, non-toxic appearance. HENT: Normocephalic, atraumatic, bilateral external ears normal, oropharynx moist, no oral exudates, nose normal. Eyes: PERRLA, EOMI, conjunctiva normal, no discharge. Neck: Normal range of motion, no tenderness, supple, no stridor. Cardiovascular:Heart rate regular rhythm, no murmur Lungs & Thorax: Bilateral breath sounds clear to auscultation Abdomen: Bowel sounds normal, soft, no tenderness, no masses, no pulsatile masses. Skin: Warm, dry, no erythema, no rash. Back: No tenderness, no CVA tenderness. Extremities: With marked left wrist tenderness with decreased ROM, decreased flexion and extension. Patient has point tenderness over capitate bone. Patient is minimally able to appose thumb to index finger, but unable to appose thumb to 3rd through 5th digits. no cyanosis, no clubbing, no edema. DNVI. Left knee intact with normal ROM. DNVI. Neurologic: Alert and oriented X 3, normal motor function, normal sensory function, no focal deficits noted. Distal sensation intact to light touch and position sense bilateral UE equal and symmetric. Gait normal. Psychologic: Affect normal, judgement normal, mood normal. Current Patient Data Vital Signs Vital Signs Date Time Temp Pulse Resp B/P (MAP) Pulse Ox O2 Delivery O2 Flow Rate FiO2 05/07/18 06:21 85 16 162/110 (127) 96 Room Air 05/07/18 05:22 97.9 EKG EKG [] Radiology/Procedures Radiology/Procedures Patient had left sugar tong splint applied. DNVI pre and post splint placement. Patent tolerated well. Course & Med Decision Making Course & Med Decision Making Emergency department course Patient presents with left wrist left shoulder injury post-fall DDx-fracture, dislocation, contusion, sprain, strain The patient was stable in the emergency department. Left wrist x-ray showed fracture of capitate bone. Left shoulder x-rays showed no fracture or dislocation. Patient was placed in left sugar tong splint, DNVI pre and post splint placement. Patient given TDAP IM for knee abrasion. Patient will follow- up with Dr. Anderson for further evaluation. Final Impression Final Impression Clinical Impression Left wrist fracture Left capitate fracture Left knee abrasion Dragashanti Disclaimer Natali Disclaimer This electronic medical record was generated, in whole or in part, using a voice recognition dictation system. Departure Departure: Impression: Primary Impression: Fx capitate bone-closed Additional Impressions: Wrist fracture, left Sprain of left shoulder Abrasion, left knee, initial encounter Disposition: 01 HOME, SELF-CARE Condition: STABLE Patient Instructions: Shoulder Sprain, Wrist Fracture, [id number] Additional Instructions: Follow-up with Dr. Cabrera Anderson for further evaluation Address: [address] [place] [address] [id number], [place] [address] If you develop worse pain, swelling, numbness, weakness, change in skin color return to the emergency department immediately Scripts Hydrocodone Bit/Acetaminophen (NORCO 5-325 TABLET) 1 Each Tablet 1 TAB PO PRN Q6HRS PRN for PAIN for 3 Days, #12 TAB 0 Refills Prov: AURA KILPATRICK MD 05/07/18 Ibuprofen (IBUPROFEN) 800 Mg Tablet 800 MG PO TIDWMEALS for 5 Days, #15 TAB Prov: AURA KILPATRICK MD 05/07/18 AURA KILPATRICK MD May 07, 2018 05:40
[2018-05-07] MEDS ORDERED: IBUP800T19 PO (06:00)
[2018-05-07] MEDS ORDERED: HYDR-971 PO (06:00)
[2018-05-07] MEDS ORDERED: DIPHTH,PERTUSS(ACELL),TET TOX 0.5 ML DISP.SYRIN. VAX IM ONE (06:00)
[2018-05-07 06:21] VITALS: BP 162/110
--- NOTE | 2018-05-07 07:50 | RAD ---
Left wrist, 3 views, 05/07/2018: HISTORY: Fall, pain No fracture or dislocation is identified. There is mild soft tissue swelling. IMPRESSION: No acute bony abnormality is detected. Left shoulder, 3 views, 05/07/2018: No fracture or dislocation is identified. IMPRESSION: No acute left shoulder abnormality is detected. Electronically signed by: Shailesh Verdugo MD (05/07/2018 7:48 AM) [facility]
--- NOTE | 2018-05-07 07:50 | RAD ---
Left wrist, 3 views, 05/07/2018: HISTORY: Fall, pain No fracture or dislocation is identified. There is mild soft tissue swelling. IMPRESSION: No acute bony abnormality is detected. Left shoulder, 3 views, 05/07/2018: No fracture or dislocation is identified. IMPRESSION: No acute left shoulder abnormality is detected. Electronically signed by: Shailesh Verdugo MD (05/07/2018 7:48 AM) [facility]
== END 2018-05-07 06:27 | disposition home or self-care (01) ==
LOC: ER 05:11
DX: S62.102A Fracture of unspecified carpal bone, left wrist, initial encounter for closed fracture (principal); S43.492A Other sprain of left shoulder joint, initial encounter; S80.212A Abrasion, left knee, initial encounter; S62.132A Displaced fracture of capitate [os magnum] bone, left wrist, initial encounter for closed fracture; Z88.0 Allergy status to penicillin; W01.0XXA Fall on same level from slipping, tripping and stumbling without subsequent striking against object, initial encounter; Y93.89 Activity, other specified; Y92.89 Other specified places as the place of occurrence of the external cause; Y99.8 Other external cause status
CPT/HCPCS: 29125; 73030; 73110; 90471; 90715; 99284-25

== ENCOUNTER 2018-06-13 12:02 | Emergency (ER) | payer OTHER ==
[~2018-06-13] VITALS: Ht 167.6 cm; Wt 90.7 kg
[~2018-06-13 12:02] MED LIST changes: +HYDR-971 PO; +IBUP800T19 PO
[2018-06-13] MEDS ORDERED: HYDROcodone/APAP 5/325MG 1 TAB TABLET PO ONE (12:15)
[2018-06-13] MEDS ORDERED: CYCLOBENZAPRINE 10 MG TABLET. PO ONE (12:15)
[2018-06-13] MEDS ORDERED: KETOROLAC 60 MG/2 ML VIAL. IM ONE (12:15)
--- NOTE | 2018-06-13 12:22 | PHYS DOC ---
Past History Past Medical History: Other Additional Past Medical Histor: multiple sclerosis Past Surgical History: Tonsillectomy, Other Smoking: Non-smoker Alcohol Use: None Drug Use: None Adult General Chief Complaint Chief Complaint: BACK PAIN OR INJURY HPI HPI Patient is a 47 year old female who brought in by EMS because of low back pain. Patient states she did go to the bathroom this morning without any problem at then tried to get out of the bathroom again felt severe pain in her back and was not able to stand up because of severe pain. Patient complaining of sharp pain in lower back and left paraspinal area without radiation or neurovascular deficit and rated her pain 6 that getting to 10 with movement and standing up. Patient states the pain started prior to arrival and denies injury or history of the same back pain. Patient denies abdominal pain, nausea and vomiting, urinary symptom. Review of Systems Review of Systems Constitutional: Denies fever or chills [] Eyes: Denies change in visual acuity, redness, or eye pain [] HENT: Denies nasal congestion or sore throat [] Respiratory: Denies cough or shortness of breath [] Cardiovascular: No additional information not addressed in HPI [] GI: Denies abdominal pain, nausea, vomiting, bloody stools or diarrhea [] : Denies dysuria or hematuria [] Musculoskeletal: Reports back pain, joint pain [] Integument: Denies rash or skin lesions [] Neurologic: Denies headache, focal weakness or sensory changes [] Endocrine: Denies polyuria or polydipsia [] All other systems were reviewed and found to be within normal limits, except as documented in this note. Current Medications Current Medications Current Medications Medications (Trade) Dose Ordered Sig/Zahra Start Time Stop Time Status Last Admin Dose Admin Acetaminophen/ Hydrocodone Bitart (Lortab 5/325) 2 tab 1X ONCE 06/13/18 12:15 06/13/18 12:16 UNV Cyclobenzaprine HCl (Flexeril) 10 mg 1X ONCE 06/13/18 12:15 06/13/18 12:16 UNV Ketorolac Tromethamine (Toradol Im) 60 mg 1X ONCE 06/13/18 12:15 06/13/18 12:16 UNV Allergies Allergies Allergies Coded Allergies Type Severity Reaction Last Updated Verified Penicillins Allergy Intermediate 02/22/16 Yes Physical Exam Physical Exam Constitutional: Well developed, well nourished, moderate distress, non-toxic appearance. [] HENT: Normocephalic, atraumatic, oropharynx moist, no oral exudates, nose normal. [] Eyes: PERRLA, EOMI, conjunctiva normal, no discharge. [] Neck: Normal range of motion, no tenderness, supple, no stridor. [] Cardiovascular:Heart rate regular rhythm, no murmur [] Lungs & Thorax: Bilateral breath sounds clear to auscultation [] Abdomen: Bowel sounds normal, soft, no tenderness, no masses, no pulsatile masses. [] Skin: Warm, dry, no erythema, no rash. [] Back: No midline tenderness, left paraspinal muscle spasm and tenderness, painful range of motion, no CVA tenderness. [] Extremities: No tenderness, no cyanosis, no clubbing, ROM intact, no edema. [] Neurologic: Alert and oriented X 3, normal motor function, normal sensory function, no focal deficits noted. [] Psychologic: Affect normal, judgement normal, mood normal. [] Current Patient Data Vital Signs Vital Signs Date Time Temp Pulse Resp B/P (MAP) Pulse Ox O2 Delivery O2 Flow Rate FiO2 06/13/18 12:04 98.3 81 18 97 Room Air EKG EKG [] Radiology/Procedures Radiology/Procedures [address] [id number] IMAGING REPORT Signed PATIENT: JAVIER ROSALES ACCOUNT: [id number] : 1970 LOCATION: ER AGE: 47 SEX: F EXAM STATUS: REG ER ORD. PHYSICIAN: MIGUEL VENTURA MD REASON: sudden onset of pain PROCEDURE: CT LUMBAR SPINE WO CONTRAST EXAM: CT lumbar spine without contrast. HISTORY: Low back pain. TECHNIQUE: CT of the lumbar spine was performed without contrast. COMPARISON: None. FINDINGS: No fractures are identified. Alignment is maintained. There is mild intervertebral disc space narrowing at L3-4. Changes of bilateral fallopian tube closure are noted. At L1-2, there is a small posterior disc bulge. There is no stenosis. At L2-3, there is a minimal posterior disc bulge. There is no significant stenosis. At L3-4, there is a moderate posterior disc bulge. There is mild facet and ligamentum flavum hypertrophy. There is mild narrowing of the lateral recesses. At L4-5, there is a moderate posterior disc bulge. There is mild facet and ligamentum flavum hypertrophy. There is minimal right neural foraminal narrowing. The lateral recesses appear mildly to moderately narrowed on the right greater than left. At L5-S1, there is a small posterior disc bulge. There is no clear stenosis. IMPRESSION: 1. Posterior disc bulges result in mild to moderate narrowing of the lateral recesses from L3 through L5. MRI could further assess stenosis if there is persistent concern. 2. No fracture or malalignment. *One or more of the following individualized dose reduction techniques were utilized for this examination: 1. Automated exposure control. 2. Adjustment of the mA and/or kV according to patient size. 3. Use of iterative reconstruction technique. Electronically signed by: Mick Lima MD (06/13/2018 1:53 PM) [facility] DICTATED AND SIGNED BY: BRYAN LIMA MD DATE: 06/13/18 0504 CC: MIGUEL VENTURA MD; KUSUM ALBARRAN ~ Course & Med Decision Making Course & Med Decision Making Pertinent Labs and Imaging studies reviewed. (See chart for details) Evaluation of patient in ER showed 47-year-old female patient with history of MS and is complaining of sudden onset of back pain without injury. Patient had left paraspinal tenderness. Patient treated with Toradol, [place] and Flexeril without change of her pain. CT showed mild to moderate bulging disks in L3-4 and 5 with stenosis and recommendation of MRI. Patient was not able to ambulate. To transfer patient to [facility] for MRI and pain management and neurosurgeon consulted. Dr. Romero accepted transfer at 1410. Dragon Disclaimer Dragon Disclaimer This electronic medical record was generated, in whole or in part, using a voice recognition dictation system. Departure Departure: Impression: Primary Impression: Intractable back pain Additional Impressions: Bulging of lumbar intervertebral disc Spinal stenosis Elevated liver function tests Disposition: XFER [facility] ([facility] at 1411) Admitting Physician: Laurie Romero (at 1410) Condition: IMPROVED Referrals: KUSUM ALBARRAN (PCP) Problem Qualifiers MIGUEL VENTURA MD Jun 13, 2018 12:22
--- NOTE | 2018-06-13 13:56 | RAD ---
EXAM: CT lumbar spine without contrast. HISTORY: Low back pain. TECHNIQUE: CT of the lumbar spine was performed without contrast. COMPARISON: None. FINDINGS: No fractures are identified. Alignment is maintained. There is mild intervertebral disc space narrowing at L3-4. Changes of bilateral fallopian tube closure are noted. At L1-2, there is a small posterior disc bulge. There is no stenosis. At L2-3, there is a minimal posterior disc bulge. There is no significant stenosis. At L3-4, there is a moderate posterior disc bulge. There is mild facet and ligamentum flavum hypertrophy. There is mild narrowing of the lateral recesses. At L4-5, there is a moderate posterior disc bulge. There is mild facet and ligamentum flavum hypertrophy. There is minimal right neural foraminal narrowing. The lateral recesses appear mildly to moderately narrowed on the right greater than left. At L5-S1, there is a small posterior disc bulge. There is no clear stenosis. IMPRESSION: 1. Posterior disc bulges result in mild to moderate narrowing of the lateral recesses from L3 through L5. MRI could further assess stenosis if there is persistent concern. 2. No fracture or malalignment. *One or more of the following individualized dose reduction techniques were utilized for this examination: 1. Automated exposure control. 2. Adjustment of the mA and/or kV according to patient size. 3. Use of iterative reconstruction technique. Electronically signed by: Mick Lima MD (06/13/2018 1:53 PM) [facility]
[2018-06-13 14:25] VITALS: BP 152/82
[2018-06-13] MEDS ORDERED: MORPHINE SULFATE 4 MG/ML DISP.SYRIN. IV ONE (14:30)
[2018-06-13] MEDS ORDERED: ONDANSETRON PF 4 MG/2 ML VIAL. IV ONE (14:30)
[2018-06-13 14:34] LABS: BASO # 0.1 x10^3/uL (0.0-0.2); BASO % 1 % (0-3); EOS # 0.2 x10^3/uL (0.0-0.7); EOS % 4 % (0-3); HEMATOCRIT 40.8 % (36.0-47.0); HEMOGLOBIN 13.7 g/dL (12.0-15.5); LYMPH # 2.2 x10^3/uL (1.0-4.8); LYMPH % 36 % (24-48); MEAN CORPUSCULAR HEMOGLOBIN 31 pg (25-35); MEAN CORPUSCULAR HGB CONC 34 g/dL (31-37); MEAN CORPUSCULAR VOLUME 91 fL (79-100); MONO # 0.8 x10^3/uL (0.0-1.1); MONO % 13 % (0-9); NEUT # 2.8 x10^3uL (1.8-7.7); NEUT % 46 % (31-73); PLATELET COUNT 245 x10^3/uL (140-400); RED BLOOD COUNT 4.48 x10^6/uL (3.50-5.40); RED CELL DISTRIBUTION WIDTH 14.4 % (11.5-14.5)
[2018-06-13 14:43] LABS: ALBUMIN 3.4 g/dL (3.4-5.0); CALCIUM 8.9 mg/dL (8.5-10.1); CREATININE 0.8 mg/dL (0.6-1.0); GFR 76.6; TOTAL BILIRUBIN 0.5 mg/dL (0.2-1.0); TOTAL PROTEIN 6.9 g/dL (6.4-8.2)
== END 2018-06-13 15:17 | disposition short-term general hospital (02) ==
LOC: ER 12:02
DX: M48.061 Spinal stenosis, lumbar region without neurogenic claudication (principal); R79.89 Other specified abnormal findings of blood chemistry; Z88.0 Allergy status to penicillin
CPT/HCPCS: 36415; 72131; 80053; 85025; 96372; 96374; 96375; 99285; J1885; J2270; J2405

== ENCOUNTER 2018-11-16 22:20 | Emergency (ER) | payer OTHER ==
[~2018-11-16] VITALS: Ht 167.6 cm; Wt 87.5 kg
[~2018-11-16 22:20] MED LIST changes: +HYDR-3165 PO; -HYDR-971 PO
[2018-11-16 22:35] VITALS: BP 158/104
--- NOTE | 2018-11-16 22:40 | ED.ADGEN ---
Past History Past Medical History: Diabetes, Other Additional Past Medical Histor: multiple sclerosis Past Surgical History: Tonsillectomy, Other Smoking: Non-smoker Alcohol Use: None Drug Use: None Adult General Chief Complaint Chief Complaint "... I been having this off and on abdomen pain here on the left and left upper quadrant 4 weeks.... It usually goes away.. But tonight it came in and never did go away and seemed more severe... HPI HPI Patient is a 48 year old female who presents with above hx and complaints Lt upper abdomen and Flank pain. Patient's had this pain off and on for weeks. Usually resolves without problem. However pain persisted tonight in left upper abdomen and flank. Patient did eat today. No history of bad food intake. Has had normal stools. Patient denies any dysuria. No history of trauma. No history of travel. No specific ill contacts. Patient has no history of prior kidney stones. Patient's family history is somewhat limited because she is adopted. She normally follows with Dr. Simon. Review of Systems Review of Systems Constitutional: Denies fever or chills [] Eyes: Denies change in visual acuity, redness, or eye pain [] HENT: Denies nasal congestion or sore throat [] Respiratory: Denies cough or shortness of breath [] Cardiovascular: No additional information not addressed in HPI [] GI: Complains of left upper abdomen quadrant pain, nausea,. Denies vomiting, bloody stools or diarrhea [] : Denies dysuria or hematuria [] Musculoskeletal: Complaints of left high flank pain Integument: Denies rash or skin lesions [] Neurologic: Denies headache, focal weakness or sensory changes [] Endocrine: Denies polyuria or polydipsia [] All other systems were reviewed and found to be within normal limits, except as documented in this note. Family History Family History Does not know family history. She was adopted Current Medications Current Medications Current Medications Medications (Trade) Dose Ordered Sig/Zahra Start Time Stop Time Status Last Admin Dose Admin Famotidine (Pepcid Vial) 20 mg 1X ONCE 11/17/18 00:15 11/17/18 00:16 DC 11/17/18 00:37 20 MG Info (Do NOT chart on this entry -- for MONITORING) 1 each PRN DAILY PRN 11/17/18 00:30 11/17/18 03:28 DC Iohexol (Omnipaque 240 Mg/ml) 30 ml 1X ONCE 11/17/18 00:30 11/17/18 00:31 DC 11/17/18 02:20 30 ML Iohexol (Omnipaque 300 Mg/ml) 75 ml 1X ONCE 11/17/18 00:30 11/17/18 00:31 DC 11/17/18 02:21 75 ML Ketorolac Tromethamine (Toradol 30mg Vial) 30 mg 1X ONCE 11/17/18 03:00 11/17/18 03:28 DC Lactated Ringer's 1,000 ml @ 1,000 mls/hr Q1H 11/17/18 00:00 11/17/18 00:59 DC 11/17/18 00:36 1,000 MLS/HR Levofloxacin (Levaquin) 500 mg 1X ONCE 11/17/18 00:15 11/17/18 00:16 DC 11/17/18 00:37 500 MG Magnesium Hydroxide (Milk Of Magnesia) 2,400 mg 1X ONCE 11/17/18 00:15 11/17/18 00:16 DC 11/17/18 00:38 2,400 MG Ondansetron HCl (Zofran) 8 mg 1X ONCE 11/17/18 00:15 11/17/18 00:16 DC 11/17/18 00:37 8 MG See nursing for home medications Allergies Allergies Allergies Coded Allergies Type Severity Reaction Last Updated Verified Penicillins Allergy Intermediate 02/22/16 Yes Physical Exam Physical Exam Constitutional: Moderately acute distress, non-toxic appearance. [] HENT: Normocephalic, atraumatic, bilateral external ears normal, oropharynx moist, no oral exudates, nose normal. [] Eyes: PERRLA, EOMI, conjunctiva normal, no discharge. [] Neck: Normal range of motion, no tenderness, supple, no stridor. [] Cardiovascular:Heart rate regular rhythm, no murmur [] Lungs & Thorax: Bilateral breath sounds clear to auscultation [] Abdomen: Bowel sounds normal, soft, left upper and mid abdomen and left flank tenderness, no masses, no pulsatile masses. Mild rebound to left upper quadrant . Obese. She declines rectal or vaginal exam this time. Skin: Warm, dry, no erythema, no rash. [] Back: No tenderness, no CVA tenderness. [] Extremities: No tenderness, no cyanosis, no clubbing, ROM intact, no edema. [] No true psoas Neurologic: Alert and oriented X 3, normal motor function, normal sensory function, no focal deficits noted. [] Psychologic: Affect anxious, judgement normal, mood normal. [] Current Patient Data Vital Signs Vital Signs Date Time Temp Pulse Resp B/P (MAP) Pulse Ox O2 Delivery O2 Flow Rate FiO2 11/16/18 22:35 98.1 104 18 95 Room Air Lab Results Laboratory Tests Test 11/16/18 23:00 11/16/18 23:06 11/17/18 00:20 Urine Collection Type Unknown Urine Color Yellow Urine Clarity Clear Urine pH 5.5 Urine Specific [place] >=1.030 Urine Protein 30 mg/dl (NEG-TRACE) Urine Glucose (UA) 500 mg/dL (NEG) Urine Ketones (Stick) 15 mg/dL (NEG) Urine Blood Neg (NEG) Urine Nitrite Neg (NEG) Urine Bilirubin Neg (NEG) Urine Urobilinogen Dipstick 0.2 mg/dL (0.2 mg/dL) Urine Leukocyte Esterase Trace (NEG) Urine RBC 0 /HPF (0-2) Urine WBC 5-10 /HPF (0-4) Urine Squamous Epithelial Cells Occ /LPF Urine Bacteria Few /HPF (0-FEW) Urine Opiates Screen Neg (NEG) Urine Methadone Screen Neg (NEG) Urine Barbiturates Neg (NEG) Urine Phencyclidine Screen Neg (NEG) Urine Amphetamine/Methamphetamine Neg (NEG) Urine Benzodiazepines Screen Neg (NEG) Urine Cocaine Screen Neg (NEG) Urine Cannabinoids Screen Neg (NEG) Urine Ethyl Alcohol Neg (NEG) POC Urine HCG, Qualitative hcg negative (Negative) White Blood Count 7.4 x10^3/uL (4.0-11.0) Red Blood Count 4.17 x10^6/uL (3.50-5.40) Hemoglobin 12.6 g/dL (12.0-15.5) Hematocrit 38.3 % (36.0-47.0) Mean Corpuscular Volume 92 fL (79-100) Mean Corpuscular Hemoglobin 30 pg (25-35) Mean Corpuscular Hemoglobin Concent 33 g/dL (31-37) Red Cell Distribution Width 14.9 % (11.5-14.5) H Platelet Count 174 x10^3/uL (140-400) Neutrophils (%) (Auto) 48 % (31-73) Lymphocytes (%) (Auto) 33 % (24-48) Monocytes (%) (Auto) 13 % (0-9) H Eosinophils (%) (Auto) 4 % (0-3) H Basophils (%) (Auto) 3 % (0-3) Neutrophils # (Auto) 3.5 x10^3uL (1.8-7.7) Lymphocytes # (Auto) 2.4 x10^3/uL (1.0-4.8) Monocytes # (Auto) 0.9 x10^3/uL (0.0-1.1) Eosinophils # (Auto) 0.3 x10^3/uL (0.0-0.7) Basophils # (Auto) 0.2 x10^3/uL (0.0-0.2) Platelet Estimate Adequate (ADEQUATE) Sodium Level 140 mmol/L (136-145) Potassium Level 3.8 mmol/L (3.5-5.1) Chloride Level 103 mmol/L (98-107) Carbon Dioxide Level 28 mmol/L (21-32) Anion Gap 9 (6-14) Blood Urea Nitrogen 10 mg/dL (7-20) Creatinine 0.8 mg/dL (0.6-1.0) Estimated GFR (Cockcroft-Gault) 76.2 Glucose Level 204 mg/dL (70-99) H Calcium Level 9.2 mg/dL (8.5-10.1) Total Bilirubin 0.5 mg/dL (0.2-1.0) Direct Bilirubin 0.2 mg/dL (0.0-0.2) Aspartate Amino Transferase (AST) 71 U/L (15-37) H Alanine Aminotransferase (ALT) 77 U/L (14-59) H Alkaline Phosphatase 139 U/L (46-116) H Total Protein 7.0 g/dL (6.4-8.2) Albumin 3.6 g/dL (3.4-5.0) Amylase Level 42 U/L (25-115) Lipase 197 U/L (73-393) Hepatitis A IgM Antibody Nonreactive (Nonreactive) Hepatitis B Surface Antigen Nonreactive (Nonreactive) Hepatitis B Core IgM Antibody Nonreactive (Nonreactive) Hepatitis C IgG Antibody Nonreactive (Nonreactive) EKG EKG [] Radiology/Procedures Radiology/Procedures My interpretation of acute abdomen film shows no acute cardiopulmonary findings. No free air under the diaphragm. There is stool in the colon.[] CT of abdomen shows no acute surgical processes. No findings of hydronephrosis. See formal report when available. Course & Med Decision Making Course & Med Decision Making Pertinent Labs and Imaging studies reviewed. (See chart for details) Patient's symptoms improved during ED visit. Patient to follow-up primary care. Patient stay on a clear fluid diet only for the next 2 days. No milk products. No solids. Clear fluids to allow bowel rest. Take Tylenol and ibuprofen for discomfort. Take Levaquin 5003 days. Follow up urine cultures. Consider completing a colonoscopy to evaluate for colitis in her left upper and flank pain. Patient return if any concerns. Must keep follow-up. Patient follow -up pending labs. [] Final Impression Final Impression 1. Abdomen pain 2. Viral syndrome 3. Urinary tract infection 4. Elevated AST ALT and alkaline phosphatase 71/77/139[] 5. History of MS 6. Diabetes elevated glucose 204 Dragon Disclaimer Dragon Disclaimer This electronic medical record was generated, in whole or in part, using a voice recognition dictation system. Discharge Summary Visit Information Final Diagnosis Problems Medical Problems: (1) Pain in the abdomen Status: Acute Brief Hospital Course Allergies Allergies Coded Allergies Type Severity Reaction Last Updated Verified Penicillins Allergy Intermediate 02/22/16 Yes Vital Signs Vital Signs Date Time Temp Pulse Resp B/P (MAP) Pulse Ox O2 Delivery O2 Flow Rate FiO2 11/16/18 22:35 98.1 104 18 95 Room Air Lab Results Laboratory Tests Test 11/16/18 23:00 11/16/18 23:06 11/17/18 00:20 Urine Collection Type Unknown Urine Color Yellow Urine Clarity Clear Urine pH 5.5 Urine Specific [place] >=1.030 Urine Protein 30 mg/dl (NEG-TRACE) Urine Glucose (UA) 500 mg/dL (NEG) Urine Ketones (Stick) 15 mg/dL (NEG) Urine Blood Neg (NEG) Urine Nitrite Neg (NEG) Urine Bilirubin Neg (NEG) Urine Urobilinogen Dipstick 0.2 mg/dL (0.2 mg/dL) Urine Leukocyte Esterase Trace (NEG) Urine RBC 0 /HPF (0-2) Urine WBC 5-10 /HPF (0-4) Urine Squamous Epithelial Cells Occ /LPF Urine Bacteria Few /HPF (0-FEW) Urine Opiates Screen Neg (NEG) Urine Methadone Screen Neg (NEG) Urine Barbiturates Neg (NEG) Urine Phencyclidine Screen Neg (NEG) Urine Amphetamine/Methamphetamine Neg (NEG) Urine Benzodiazepines Screen Neg (NEG) Urine Cocaine Screen Neg (NEG) Urine Cannabinoids Screen Neg (NEG) Urine Ethyl Alcohol Neg (NEG) Bedside Urine HCG, Qualitative hcg negative (Negative) White Blood Count 7.4 x10^3/uL (4.0-11.0) Red Blood Count 4.17 x10^6/uL (3.50-5.40) Hemoglobin 12.6 g/dL (12.0-15.5) Hematocrit 38.3 % (36.0-47.0) Mean Corpuscular Volume 92 fL (79-100) Mean Corpuscular Hemoglobin 30 pg (25-35) Mean Corpuscular Hemoglobin Concent 33 g/dL (31-37) Red Cell Distribution Width 14.9 % (11.5-14.5) Platelet Count 174 x10^3/uL (140-400) Neutrophils (%) (Auto) 48 % (31-73) Lymphocytes (%) (Auto) 33 % (24-48) Monocytes (%) (Auto) 13 % (0-9) Eosinophils (%) (Auto) 4 % (0-3) Basophils (%) (Auto) 3 % (0-3) Neutrophils # (Auto) 3.5 x10^3uL (1.8-7.7) Lymphocytes # (Auto) 2.4 x10^3/uL (1.0-4.8) Monocytes # (Auto) 0.9 x10^3/uL (0.0-1.1) Eosinophils # (Auto) 0.3 x10^3/uL (0.0-0.7) Basophils # (Auto) 0.2 x10^3/uL (0.0-0.2) Platelet Estimate Adequate (ADEQUATE) Sodium Level 140 mmol/L (136-145) Potassium Level 3.8 mmol/L (3.5-5.1) Chloride Level 103 mmol/L (98-107) Carbon Dioxide Level 28 mmol/L (21-32) Anion Gap 9 (6-14) Blood Urea Nitrogen 10 mg/dL (7-20) Creatinine 0.8 mg/dL (0.6-1.0) Estimated GFR (Cockcroft-Gault) 76.2 Glucose Level 204 mg/dL (70-99) Calcium Level 9.2 mg/dL (8.5-10.1) Total Bilirubin 0.5 mg/dL (0.2-1.0) Direct Bilirubin 0.2 mg/dL (0.0-0.2) Aspartate Amino Transf (AST/SGOT) 71 U/L (15-37) Alanine Aminotransferase (ALT/SGPT) 77 U/L (14-59) Alkaline Phosphatase 139 U/L (46-116) Total Protein 7.0 g/dL (6.4-8.2) Albumin 3.6 g/dL (3.4-5.0) Amylase Level 42 U/L (25-115) Lipase 197 U/L (73-393) Hepatitis A IgM Antibody Nonreactive (Nonreactive) Hepatitis B Surface Antigen Nonreactive (Nonreactive) Hepatitis B Core IgM Antibody Nonreactive (Nonreactive) Hepatitis C IgG Antibody Nonreactive (Nonreactive) Brief Hospital Course Ms. Grady is a 48 old female who presented with Lt upper abd and flank pain. Discharge Information Condition at Discharge: Improved, Stable Disposition/Orders: D/C to Home Dischare Medications Current Medications Lactated Ringer's 1,000 ml @ 1,000 mls/hr Q1H IV Last administered on at 00:36; Admin Dose 1,000 MLS/HR; Start 11/17/18 at 00:00; Stop 11/17/18 at 00:59; Status DC Ondansetron HCl (Zofran) 8 mg 1X ONCE IV Last administered on 11/17/18at 00:37 ; Admin Dose 8 MG; Start 11/17/18 at 00:15; Stop 11/17/18 at 00:16; Status DC Famotidine (Pepcid Vial) 20 mg 1X ONCE IVP Last administered on 11/17/18at 00: 37; Admin Dose 20 MG; Start 11/17/18 at 00:15; Stop 11/17/18 at 00:16; Status DC Ketorolac Tromethamine (Toradol 30mg Vial) 30 mg 1X ONCE IV Last administered on 11/17/18at 00:37; Admin Dose 30 MG; Start 11/17/18 at 00:15; Stop 11/17/18 at 00:16; Status DC Magnesium Hydroxide (Milk Of Magnesia) 2,400 mg 1X ONCE PO Last administered on 11/17/18at 00:38; Admin Dose 2,400 MG; Start 11/17/18 at 00:15; Stop 11/17/18 at 00:16; Status DC Levofloxacin (Levaquin) 500 mg 1X ONCE PO Last administered on 11/17/18at 00:37 ; Admin Dose 500 MG; Start 11/17/18 at 00:15; Stop 11/17/18 at 00:16; Status DC Iohexol (Omnipaque 240 Mg/ml) 30 ml 1X ONCE PO Last administered on 11/17/18at 02:20; Admin Dose 30 ML; Start 11/17/18 at 00:30; Stop 11/17/18 at 00:31; Status DC Iohexol (Omnipaque 300 Mg/ml) 75 ml 1X ONCE IV Last administered on 11/17/18at 02:21; Admin Dose 75 ML; Start 11/17/18 at 00:30; Stop 11/17/18 at 00:31; Status DC Info (Do NOT chart on this entry -- for MONITORING) 1 each PRN DAILY PRN MC SEE COMMENTS; Start 11/17/18 at 00:30; Stop 11/17/18 at 03:28; Status DC Ketorolac Tromethamine (Toradol 30mg Vial) 30 mg 1X ONCE IV ; Start 11/17/18 at 03:00; Stop 11/17/18 at 03:28; Status DC Active Scripts Active Levaquin (Levofloxacin) 500 Mg Tablet 500 Mg PO DAILY 3 Days Ibuprofen 800 Mg Tablet 800 Mg PO TIDWMEALS 5 Days Reported Meclizine Hcl 12.5 Mg Tablet 1 Tab PO HS Cetirizine Hcl 10 Mg Tablet 1 Tab PO HS Sertraline Hcl 50 Mg Tablet 2 Tab PO HS Levothyroxine Sodium 75 Mcg Tablet 1 Tab PO DAILY Aubagio (Teriflunomide) 14 Mg Tablet 1 Tab PO HS Discharge Summary Visit Information Final Diagnosis Problems Medical Problems: (1) Pain in the abdomen Status: Acute Brief Hospital Course Allergies Allergies Coded Allergies Type Severity Reaction Last Updated Verified Penicillins Allergy Intermediate 02/22/16 Yes Vital Signs Vital Signs Date Time Temp Pulse Resp B/P (MAP) Pulse Ox O2 Delivery O2 Flow Rate FiO2 11/16/18 22:35 98.1 104 18 95 Room Air Lab Results Laboratory Tests Test 11/16/18 23:00 11/16/18 23:06 11/17/18 00:20 Urine Collection Type Unknown Urine Color Yellow Urine Clarity Clear Urine pH 5.5 Urine Specific [place] >=1.030 Urine Protein 30 mg/dl (NEG-TRACE) Urine Glucose (UA) 500 mg/dL (NEG) Urine Ketones (Stick) 15 mg/dL (NEG) Urine Blood Neg (NEG) Urine Nitrite Neg (NEG) Urine Bilirubin Neg (NEG) Urine Urobilinogen Dipstick 0.2 mg/dL (0.2 mg/dL) Urine Leukocyte Esterase Trace (NEG) Urine RBC 0 /HPF (0-2) Urine WBC 5-10 /HPF (0-4) Urine Squamous Epithelial Cells Occ /LPF Urine Bacteria Few /HPF (0-FEW) Urine Opiates Screen Neg (NEG) Urine Methadone Screen Neg (NEG) Urine Barbiturates Neg (NEG) Urine Phencyclidine Screen Neg (NEG) Urine Amphetamine/Methamphetamine Neg (NEG) Urine Benzodiazepines Screen Neg (NEG) Urine Cocaine Screen Neg (NEG) Urine Cannabinoids Screen Neg (NEG) Urine Ethyl Alcohol Neg (NEG) Bedside Urine HCG, Qualitative hcg negative (Negative) White Blood Count 7.4 x10^3/uL (4.0-11.0) Red Blood Count 4.17 x10^6/uL (3.50-5.40) Hemoglobin 12.6 g/dL (12.0-15.5) Hematocrit 38.3 % (36.0-47.0) Mean Corpuscular Volume 92 fL (79-100) Mean Corpuscular Hemoglobin 30 pg (25-35) Mean Corpuscular Hemoglobin Concent 33 g/dL (31-37) Red Cell Distribution Width 14.9 % (11.5-14.5) Platelet Count 174 x10^3/uL (140-400) Neutrophils (%) (Auto) 48 % (31-73) Lymphocytes (%) (Auto) 33 % (24-48) Monocytes (%) (Auto) 13 % (0-9) Eosinophils (%) (Auto) 4 % (0-3) Basophils (%) (Auto) 3 % (0-3) Neutrophils # (Auto) 3.5 x10^3uL (1.8-7.7) Lymphocytes # (Auto) 2.4 x10^3/uL (1.0-4.8) Monocytes # (Auto) 0.9 x10^3/uL (0.0-1.1) Eosinophils # (Auto) 0.3 x10^3/uL (0.0-0.7) Basophils # (Auto) 0.2 x10^3/uL (0.0-0.2) Platelet Estimate Adequate (ADEQUATE) Sodium Level 140 mmol/L (136-145) Potassium Level 3.8 mmol/L (3.5-5.1) Chloride Level 103 mmol/L (98-107) Carbon Dioxide Level 28 mmol/L (21-32) Anion Gap 9 (6-14) Blood Urea Nitrogen 10 mg/dL (7-20) Creatinine 0.8 mg/dL (0.6-1.0) Estimated GFR (Cockcroft-Gault) 76.2 Glucose Level 204 mg/dL (70-99) Calcium Level 9.2 mg/dL (8.5-10.1) Total Bilirubin 0.5 mg/dL (0.2-1.0) Direct Bilirubin 0.2 mg/dL (0.0-0.2) Aspartate Amino Transf (AST/SGOT) 71 U/L (15-37) Alanine Aminotransferase (ALT/SGPT) 77 U/L (14-59) Alkaline Phosphatase 139 U/L (46-116) Total Protein 7.0 g/dL (6.4-8.2) Albumin 3.6 g/dL (3.4-5.0) Amylase Level 42 U/L (25-115) Lipase 197 U/L (73-393) Hepatitis A IgM Antibody Nonreactive (Nonreactive) Hepatitis B Surface Antigen Nonreactive (Nonreactive) Hepatitis B Core IgM Antibody Nonreactive (Nonreactive) Hepatitis C IgG Antibody Nonreactive (Nonreactive) Brief Hospital Course Ms. Grady is a 48 old female who presented with Lt. upper quadrant abd. pain. No acute surgical findings found. Patient follow-up primary consider outpatient GI evaluation colon Scopic Discharge Information Condition at Discharge: Improved, Stable Disposition/Orders: D/C to Home Dischare Medications Current Medications Lactated Ringer's 1,000 ml @ 1,000 mls/hr Q1H IV Last administered on at 00:36; Admin Dose 1,000 MLS/HR; Start 11/17/18 at 00:00; Stop 11/17/18 at 00:59; Status DC Ondansetron HCl (Zofran) 8 mg 1X ONCE IV Last administered on 11/17/18at 00:37 ; Admin Dose 8 MG; Start 11/17/18 at 00:15; Stop 11/17/18 at 00:16; Status DC Famotidine (Pepcid Vial) 20 mg 1X ONCE IVP Last administered on 11/17/18at 00: 37; Admin Dose 20 MG; Start 11/17/18 at 00:15; Stop 11/17/18 at 00:16; Status DC Ketorolac Tromethamine (Toradol 30mg Vial) 30 mg 1X ONCE IV Last administered on 11/17/18at 00:37; Admin Dose 30 MG; Start 11/17/18 at 00:15; Stop 11/17/18 at 00:16; Status DC Magnesium Hydroxide (Milk Of Magnesia) 2,400 mg 1X ONCE PO Last administered on 11/17/18at 00:38; Admin Dose 2,400 MG; Start 11/17/18 at 00:15; Stop 11/17/18 at 00:16; Status DC Levofloxacin (Levaquin) 500 mg 1X ONCE PO Last administered on 11/17/18at 00:37 ; Admin Dose 500 MG; Start 11/17/18 at 00:15; Stop 11/17/18 at 00:16; Status DC Iohexol (Omnipaque 240 Mg/ml) 30 ml 1X ONCE PO Last administered on 11/17/18at 02:20; Admin Dose 30 ML; Start 11/17/18 at 00:30; Stop 11/17/18 at 00:31; Status DC Iohexol (Omnipaque 300 Mg/ml) 75 ml 1X ONCE IV Last administered on 11/17/18at 02:21; Admin Dose 75 ML; Start 11/17/18 at 00:30; Stop 11/17/18 at 00:31; Status DC Info (Do NOT chart on this entry -- for MONITORING) 1 each PRN DAILY PRN MC SEE COMMENTS; Start 11/17/18 at 00:30; Stop 11/17/18 at 03:28; Status DC Ketorolac Tromethamine (Toradol 30mg Vial) 30 mg 1X ONCE IV ; Start 11/17/18 at 03:00; Stop 11/17/18 at 03:28; Status DC Active Scripts Active Levaquin (Levofloxacin) 500 Mg Tablet 500 Mg PO DAILY 3 Days Ibuprofen 800 Mg Tablet 800 Mg PO TIDWMEALS 5 Days Reported Meclizine Hcl 12.5 Mg Tablet 1 Tab PO HS Cetirizine Hcl 10 Mg Tablet 1 Tab PO HS Sertraline Hcl 50 Mg Tablet 2 Tab PO HS Levothyroxine Sodium 75 Mcg Tablet 1 Tab PO DAILY Aubagio (Teriflunomide) 14 Mg Tablet 1 Tab PO HS Dragon Disclaimer This chart was dictated in whole or in part using Voice Recognition software in a busy, high-work load, and often noisy Emergency Department environment. It may contain unintended and wholly unrecognized errors or omissions. Dragon Disclaimer This chart was dictated in whole or in part using Voice Recognition software in a busy, high-work load, and often noisy Emergency Department environment. It may contain unintended and wholly unrecognized errors or omissions. HERMINIA CAUSEY MD Nov 16, 2018 22:40
[2018-11-16 23:37] LABS: BILIRUBIN,URINE NEG (NEG); CLARITY,URINE CLEAR; COLOR,URINE YELLOW; GLUCOSE,URINE 500 mg/dL (NEG); NITRITE,URINE NEG (NEG); RBC,URINE 0 /HPF (0-2); UROBILINOGEN,URINE 0.2 mg/dL (0.2 mg/dL)
[2018-11-16 23:38] LABS: BACTERIA,URINE FEW /HPF (0-FEW); SQUAMOUS EPITHELIAL CELL,UR OCC /LPF
[2018-11-16 23:42] LABS: AMPHETAMINE/METHAMPHETAMINE NEG (NEG); BARBITURATES NEG (NEG); BENZODIAZEPINES NEG (NEG); CANNABINOIDS NEG (NEG); COCAINE NEG (NEG); METHADONE NEG (NEG); OPIATES NEG (NEG); PHENCYCLIDINE NEG (NEG)
[2018-11-17] MEDS ORDERED: CONTRAST GIVEN MC PRN (00:30)
[2018-11-17] MEDS: IV RINGERS SOLUTION,LACTATED 1,000 ML IV SCH (00:36)
[2018-11-17] MEDS: ONDANSETRON PF 4 MG/2 ML VIAL. IV ONE (00:37)
[2018-11-17] MEDS: levoFLOXacin 500 MG TABLET PO ONE (00:37)
[2018-11-17] MEDS: KETOROLAC 30 MG/ML VIAL. IV ONE (00:37)
[2018-11-17] MEDS: FAMOTIDINE 20 MG/2 ML VIAL IVP ONE (00:37)
[2018-11-17] MEDS: MAGNESIUM HYDROXIDE 2,400 MG/30 ML ORAL.SUSP. PO ONE (00:38)
[2018-11-17 00:54] LABS: BASO # 0.2 x10^3/uL (0.0-0.2); BASO % 3 % (0-3); EOS # 0.3 x10^3/uL (0.0-0.7); EOS % 4 % (0-3); HEMATOCRIT 38.3 % (36.0-47.0); HEMOGLOBIN 12.6 g/dL (12.0-15.5); LYMPH # 2.4 x10^3/uL (1.0-4.8); LYMPH % 33 % (24-48); MEAN CORPUSCULAR HEMOGLOBIN 30 pg (25-35); MEAN CORPUSCULAR HGB CONC 33 g/dL (31-37); MEAN CORPUSCULAR VOLUME 92 fL (79-100); MONO # 0.9 x10^3/uL (0.0-1.1); MONO % 13 % (0-9); NEUT # 3.5 x10^3uL (1.8-7.7); NEUT % 48 % (31-73); PLATELET COUNT 174 x10^3/uL (140-400); RED BLOOD COUNT 4.17 x10^6/uL (3.50-5.40); RED CELL DISTRIBUTION WIDTH 14.9 % (11.5-14.5); WHITE BLOOD COUNT 7.4 x10^3/uL (4.0-11.0)
[2018-11-17 01:02] LABS: ALBUMIN 3.6 g/dL (3.4-5.0); CALCIUM 9.2 mg/dL (8.5-10.1); CREATININE 0.8 mg/dL (0.6-1.0); DIRECT BILIRUBIN 0.2 mg/dL (0.0-0.2); GFR 76.2; POTASSIUM 3.8 mmol/L (3.5-5.1); TOTAL BILIRUBIN 0.5 mg/dL (0.2-1.0)
[2018-11-17 01:16] LABS: PLT ESTIMATE ADEQUATE (ADEQUATE)
--- NOTE | 2018-11-17 02:03 | RAD ---
Indication:Lower left quadrant abdominal pain. Hx tubal TECHNIQUE:Acute abdominal series COMPARISON: None FINDINGS: Heart is normal in size. Lungs are clear. No pneumothorax or pleural effusion. Visualized bony thorax within normal limits. No evidence of pneumoperitoneum. No abnormally dilated bowel loops or air-fluid levels. No abnormal calcific densities ejecting over the kidneys to suggest apparent renal stones. Visualized bones are within normal limits. IMPRESSION: No acute findings. Electronically signed by: Angus Alonso DO (11/17/2018 2:00 AM) [id number]
[2018-11-17] MEDS: IOHEXOL 240 MG/ML 50ML VIAL. PO ONE (02:20)
[2018-11-17] MEDS: IOHEXOL 300 MG/ML 75 ML VIAL. IV ONE (02:21)
--- NOTE | 2018-11-17 02:50 | RAD ---
PQRS Compliance statement: One or more of the following individualized dose reduction techniques were utilized for this examination: 1. Automated exposure control. 2. Adjustment of the mA and/or kV according to patient size. 3. Use of iterative reconstruction technique. Indication:Omni 300, 75ml IV. Omni 240, 30ml PO. Left flank and upper abdominal pain. Hx tubal, multiple sclerosis TECHNIQUE: CT abdomen and pelvis with IV contrast with multiplanar reformats. COMPARISON: None FINDINGS: Heart is normal in size. No pericardial or pleural effusion. Clear lung bases. Liver, spleen, gallbladder, pancreas, adrenals and kidneys within normal limits. No nephrolithiasis or hydronephrosis. No enlarged retroperitoneal or pelvic adenopathy. No free pelvic fluid or ascites. No bowel obstruction. Normal appendix. Anteverted uterus. Urinary bladder within normal limits. No pneumoperitoneum. No suspicious bony lesion. IMPRESSION: No acute findings. Electronically signed by: Angus Alonso DO (11/17/2018 2:47 AM) [id number]
[2018-11-17] MEDS ORDERED: LEVO500T59 PO (02:58)
[2018-11-17] MEDS ORDERED: KETOROLAC 30 MG/ML VIAL. IV ONE (03:00)
== END 2018-11-17 03:25 | disposition home or self-care (01) ==
LOC: ER 22:20
DX: N39.0 Urinary tract infection, site not specified (principal); B34.9 Viral infection, unspecified; E11.65 Type 2 diabetes mellitus with hyperglycemia; G35 Multiple sclerosis; R74.0 Nonspecific elevation of levels of transaminase and lactic acid dehydrogenase [LDH]; Z88.0 Allergy status to penicillin
CPT/HCPCS: 36415; 74022; 74177; 80048; 80076; 80307; 81001; 81025; 82150; 83690; 85025; 86705; 86709; 86803; 87086; 87340; 96361; 96374; 96375; 99284; J1885; J2405; J3490; J7120; Q9966; Q9967

== ENCOUNTER 2019-06-24 23:03 | Emergency (ER) | payer OTHER, MEDICAID ==
[~2019-06-24] VITALS: Ht 167.6 cm; Wt 91.7 kg
[~2019-06-24 23:03] MED LIST changes: +LEVO500T59 PO
[2019-06-24 23:10] VITALS: BP 136/81
--- NOTE | 2019-06-24 23:18 | PHYS DOC ---
Past History Past Medical History: Diabetes, Other Additional Past Medical Histor: multiple sclerosis Past Surgical History: Tonsillectomy, Other Smoking: Non-smoker Alcohol Use: None Drug Use: None Adult General Chief Complaint Chief Complaint: FOOT INJURY PAIN HPI HPI 48-year-old female presents with report of right foot pain after getting her toes caught underneath a couch earlier today. Reports some bruising and swelling to distal aspects primarily to third toe. Patient reports history of neuropathy. Denies laceration. Reports took ibuprofen a few hours ago. Review of Systems Review of Systems Constitutional: Denies fever or chills Eyes: Denies redness or eye pain HENT: Denies nasal congestion or sore throat Respiratory: Denies cough or shortness of breath Cardiovascular: Denies chest pain or palpitations GI: Denies abdominal pain, nausea, or vomiting : Denies dysuria or hematuria Musculoskeletal: Reports right foot pain Integument: Reports bruising Neurologic: Denies headache, focal weakness or sensory changes Complete systems were reviewed and found to be within normal limits, except as documented in this note. Allergies Allergies Allergies Coded Allergies Type Severity Reaction Last Updated Verified Penicillins Allergy Intermediate 02/22/16 Yes Physical Exam Physical Exam Constitutional: Well developed, well nourished, no acute distress, non-toxic appearance HENT: Normocephalic, atraumatic Eyes: Conjunctiva normal, no discharge Neck: Normal range of motion, supple Cardiovascular: PT and DP on right +2, cap refill less than 2 seconds Lungs & Thorax: No respiratory distress Skin: Warm, dry, no erythema, mild swelling to dorsum of distal right foot, ecchymosis to third toe Extremities: Tenderness to palpation of the 2nd-4th MTP and PIPs Neurologic: Alert and oriented X 3, no focal deficits noted Psychologic: Affect normal, judgement normal EKG EKG [] Radiology/Procedures Radiology/Procedures PROCEDURE: FOOT RIGHT 3V Right foot 3 views: Reason for examination: Injury to third toe with pain and bruising. No acute fracture or dislocation is seen. The bone density is normal. No abnormal periosteal reaction is seen. Joint spaces are maintained. IMPRESSION: No acute bony abnormality at the right foot. Electronically signed by: Erum Harmon MD (06/24/2019 11:50 PM) [facility] Course & Med Decision Making Course & Med Decision Making Pertinent Imaging studies reviewed. (See chart for details) Patient presents with history of present illness and physical exam consistent for foot contusion. X-ray confirmed no fracture or dislocation. Symptomatic treatment provided with oral Tylenol and ice pack. Postop shoe applied. Patient stable for discharge with outpatient follow-up with PCP. Discussed findings and plan with patient, who acknowledges understanding and agreement. Dragon Disclaimer Dragon Disclaimer This electronic medical record was generated, in whole or in part, using a voice recognition dictation system. Splinting Splinting : Location: Right foot Pre-Made Type: Post op shoe Pre-Proc Neuro Vasc Exam: normal Post-Proc Neuro Vasc Exam: normal, unchanged from pre-exam Departure Departure: Impression: Primary Impression: Foot contusion Disposition: HOME, SELF-CARE Condition: STABLE Referrals: KUSUM ALBARRAN (PCP) CHRISTA WILBURN MD Patient Instructions: Foot Contusion, [id number] Additional Instructions: ICE area 20 min on then leave off for next 20 min. Scripts Hydrocodone Bit/Acetaminophen (NORCO 5-325 TABLET) 1 Each Tablet 0.5-1 TAB PO Q6HRS PRN for PAIN, #10 TAB Prov: MAYURI WOLF DO 06/24/19 Problem Qualifiers Primary Impression: Foot contusion Encounter type: initial encounter Laterality: right Qualified Codes: S90.31XA - Contusion of right foot, initial encounter MAYURI WOLF DO Jun 24, 2019 23:18
[2019-06-24] MEDS ORDERED: HYDR-3165 PO (23:29)
[2019-06-24] MEDS ORDERED: ACETAMINOPHEN 500 MG TABLET PO ONE (23:30)
--- NOTE | 2019-06-24 23:53 | RAD ---
Right foot 3 views: Reason for examination: Injury to third toe with pain and bruising. No acute fracture or dislocation is seen. The bone density is normal. No abnormal periosteal reaction is seen. Joint spaces are maintained. IMPRESSION: No acute bony abnormality at the right foot. Electronically signed by: Erum Harmon MD (06/24/2019 11:50 PM) [facility]
== END 2019-06-24 23:43 | disposition home or self-care (01) ==
LOC: ER 23:03
DX: S90.31XA Contusion of right foot, initial encounter (principal); S90.121A Contusion of right lesser toe(s) without damage to nail, initial encounter; E11.9 Type 2 diabetes mellitus without complications; Z88.0 Allergy status to penicillin; W23.0XXA Caught, crushed, jammed, or pinched between moving objects, initial encounter; Y93.89 Activity, other specified; Y92.89 Other specified places as the place of occurrence of the external cause; Y99.8 Other external cause status
CPT/HCPCS: 73630; 99284

== ENCOUNTER 2019-11-26 14:20 | Emergency (ER) | payer OTHER, MEDICAID ==
[~2019-11-26] VITALS: Ht 167.6 cm; Wt 81.8 kg
[~2019-11-26 14:20] MED LIST changes: -MECL12.52 PO; +MECL12.573 PO
[2019-11-26 14:26] VITALS: BP 139/85
[2019-11-26] MEDS ORDERED: KETOROLAC 30 MG/ML VIAL. IVP ONE (14:45)
[2019-11-26] MEDS ORDERED: ORPHENADRINE CITRATE 60 MG/2 ML VIAL. IV ONE (14:45)
[2019-11-26] MEDS ORDERED: DEXAMETHASONE SOD PHOS 10 MG/ML VIAL IV ONE (14:45)
[2019-11-26] MEDS ORDERED: ORPH-16 PO (15:06)
[2019-11-26] MEDS ORDERED: HYDR-3165 PO (15:06)
[2019-11-26] MEDS ORDERED: DICL50TA4 PO (15:06)
--- NOTE | 2019-11-26 15:09 | PHYS DOC ---
Past History Past Medical History: Diabetes, Hypothyroid, Other Additional Past Medical Histor: MS Past Surgical History: Tonsillectomy, Tubal ligation Smoking: Non-smoker Alcohol Use: None Drug Use: None Adult General Chief Complaint Chief Complaint: BACK PAIN OR INJURY [facility] HPI Patient is a 49-year-old female who presents with complaint of acute episode of chronic lower back pain. Patient states that she has bulging disks. Patient states that she has had pain in her lower back for the last day and states that she has no recent injuries. She is not aware of what caused the pain. She rates her pain to be a 10 out of 10. She denies any loss of bowel or bladder control. She states that pain is worsened with weightbearing. She denies any saddle anesthesia.[] Review of Systems Review of Systems Constitutional: Denies fever or chills [] Respiratory: Denies cough or shortness of breath [] Cardiovascular: No additional information not addressed in HPI [] Musculoskeletal: Complains of lower back pain [] Integument: Denies rash or skin lesions [] Neurologic: Denies headache, focal weakness or sensory changes [] Current Medications Current Medications Current Medications Medications (Trade) Dose Ordered Sig/[facility] Start Time Stop Time Status Last Admin Dose Admin Dexamethasone Sodium Phosphate (Decadron) 10 mg 1X ONCE 11/26/19 14:45 11/26/19 14:46 DC 11/26/19 14:46 10 MG Fentanyl Citrate (Fentanyl 2ml Vial) 50 mcg 1X ONCE 11/26/19 14:45 11/26/19 14:46 DC 11/26/19 14:46 50 MCG Ketorolac Tromethamine (Toradol 30mg Vial) 30 mg 1X ONCE 11/26/19 14:45 11/26/19 14:46 DC 11/26/19 14:46 30 MG Orphenadrine Citrate (Norflex) 60 mg 1X ONCE 11/26/19 14:45 11/26/19 14:46 DC 11/26/19 14:45 60 MG Allergies Allergies Allergies Coded Allergies Type Severity Reaction Last Updated Verified Penicillins Allergy Intermediate 02/22/16 Yes Physical Exam Physical Exam Constitutional: Well developed, well nourished, no acute distress, non-toxic appearance. [] Neck: Normal range of motion, no tenderness, supple, no stridor. [] Cardiovascular:Heart rate regular rhythm, no murmur [] Lungs & Thorax: Bilateral breath sounds clear to auscultation [] Skin: Warm, dry, no erythema, no rash. [] Back: Complains of tenderness to palpation in the lumbar paraspinal musculature. [] Extremities: No tenderness, no cyanosis, no clubbing, ROM intact, no edema. [] Current Patient Data Vital Signs Vital Signs Date Time Temp Pulse Resp B/P (MAP) Pulse Ox O2 Delivery O2 Flow Rate FiO2 11/26/19 14:26 97.6 91 18 139/85 (103) 99 EKG EKG [] Radiology/Procedures Radiology/Procedures [] Course & Med Decision Making Course & Med Decision Making Pertinent Labs and Imaging studies reviewed. (See chart for details) [] Dragon Disclaimer Dragon Disclaimer This electronic medical record was generated, in whole or in part, using a voice recognition dictation system. Departure Departure: Impression: Primary Impression: Chronic back pain Disposition: HOME, SELF-CARE Condition: STABLE Referrals: KUSUM ALBARRAN (PCP) Patient Instructions: Chronic Back Pain Scripts Orphenadrine Citrate (ORPHENADRINE CITRATE) 100 Mg Tablet.er 1 TAB PO BID PRN for MUSCLE SPASMS, #14 TAB Prov: ELIZABETH READ Jr. DO 11/26/19 Hydrocodone Bit/Acetaminophen (NORCO 5-325 TABLET) 1 Each Tablet 1 TAB PO PRN Q6HRS PRN for PAIN, #12 TAB 0 Refills Prov: ELIZABETH READ Jr. DO 11/26/19 Diclofenac Sodium (DICLOFENAC SODIUM) 50 Mg Tablet.dr 1 TAB PO BID PRN for PAIN, #20 TAB Prov: ELIZABETH READ Jr. DO 11/26/19 Problem Qualifiers Primary Impression: Chronic back pain Back pain location: low back pain Back pain laterality: bilateral Sciatica presence: without sciatica Qualified Codes: M54.5 - Low back pain; G89.29 - Other chronic pain ELIZABETH READ Jr. DO Nov 26, 2019 15:09
== END 2019-11-26 15:36 | disposition home or self-care (01) ==
LOC: ER 14:20
DX: G89.29 Other chronic pain (principal); M54.5 Low back pain; E11.9 Type 2 diabetes mellitus without complications; E03.9 Hypothyroidism, unspecified; G35 Multiple sclerosis; Z98.51 Tubal ligation status; Z88.0 Allergy status to penicillin
CPT/HCPCS: 96374; 96375; 99284; J1100; J1885; J2360; J3010

== ENCOUNTER 2020-12-21 11:09 | Emergency (ER) | payer OTHER, MEDICAID ==
[~2020-12-21] VITALS: Ht 167.6 cm; Wt 45.5 kg
[~2020-12-21 11:09] MED LIST changes: +AMLO-187 PO; +ATOR20TA58 PO; +DICL50TA4 PO; +DULO60CA6 PO; +EMPA10TA PO; +GABA-586 PO; +GABA600T7 PO; +GLIM2TAB7 PO; +LEVO88TA4 PO; -MECL12.573 PO; +MECL12.582 PO; +ORPH-16 PO; +SERT-268 PO; -SERT50TA8 PO; +TAMS0.4C97 PO
[2020-12-21] MEDS ORDERED: IV NORMAL SALINE 1,000ML 1,000 ML IV SCH (11:15)
[2020-12-21 12:22] VITALS: BP 136/90
[2020-12-21 12:42] LABS: BASO # 0.1 x10^3/uL (0.0-0.2); BASO % 1 % (0-3); EOS # 0.3 x10^3/uL (0.0-0.7); EOS % 4 % (0-3); HEMATOCRIT 48.2 % (36.0-47.0); HEMOGLOBIN 15.8 g/dL (12.0-15.5); LYMPH # 2.6 x10^3/uL (1.0-4.8); LYMPH % 34 % (24-48); MEAN CORPUSCULAR HEMOGLOBIN 31 pg (25-35); MEAN CORPUSCULAR HGB CONC 33 g/dL (31-37); MEAN CORPUSCULAR VOLUME 94 fL (79-100); MONO % 13 % (0-9); NEUT # 3.7 x10^3uL (1.8-7.7); NEUT % 49 % (31-73); PLATELET COUNT 230 x10^3/uL (140-400); RED BLOOD COUNT 5.12 x10^6/uL (3.50-5.40); WHITE BLOOD COUNT 7.7 x10^3/uL (4.0-11.0)
[2020-12-21] MEDS ORDERED: IOHEXOL 300 MG/ML 75 ML VIAL. IV ONE (12:45)
[2020-12-21] MEDS ORDERED: ONDANSETRON PF 4 MG/2 ML VIAL. IVP ONE ×2 (12:45→16:00)
[2020-12-21 13:24] LABS: CALCIUM 8.5 mg/dL (8.5-10.1); CREATININE 0.7 mg/dL (0.6-1.0); GFR 88.2; POTASSIUM 3.4 mmol/L (3.5-5.1)
[2020-12-21 13:30] LABS: ALBUMIN 3.5 g/dL (3.4-5.0); TOTAL BILIRUBIN 0.8 mg/dL (0.2-1.0); TOTAL PROTEIN 6.9 g/dL (6.4-8.2)
--- NOTE | 2020-12-21 14:16 | RAD ---
EXAM: Abdomen and pelvis CT with intravenous contrast. HISTORY: Right lower quadrant pain. TECHNIQUE: Computed tomographic images of the abdomen and pelvis were obtained following the administ ration of intravenous contrast. Multiplanar reformatting was performed. *One or more of the following individualized dose reduction techniques were utilized for this examina tion: 1. Automated exposure control. 2. Adjustment of the mA and/or kV according to patient size. 3. Use of iterative reconstruction technique. COMPARISON: 10/10/2020. FINDINGS: Evaluation of the lower thorax demonstrates lingular and right middle lobe atelectasis or s carring. There is posterior dependent and basilar atelectasis. There is no infiltrate or pleural effu lizbeth. No hepatic lesion is seen. The gallbladder, pancreas, spleen, stomach, adrenal glands and kidne ys are unremarkable. There is no appendicitis. There is no bowel obstruction or abnormal bowel wall thickening. There are few distal colonic diverticula. The urinary bladder, uterus and adnexal regions are unremarkable. The aorta is normal in caliber. There is no lymphadenopathy. There is no suspicious osseous lesion. Ther e is degenerative change at the lumbosacral junction. IMPRESSION: 1. No acute abdominal or pelvic finding. 2. Distal colonic diverticulosis. Electronically signed by: Stephanie Pettit MD (12/21/2020 2:14 PM) [facility]
--- NOTE | 2020-12-21 14:31 | PHYS DOC ---
Past History Past Medical History: Other Additional Past Medical Histor: MS, HLD, IDDM Past Surgical History: Tonsillectomy Additional Past Surgical Histo: Ex-Lap Smoking: Non-smoker Alcohol Use: None Drug Use: None General Adult EDM: Chief Complaint: ABDOMINAL PAIN HPI: HPI: Patient is a [age] year old [sex] who presents with [] Review of Systems: Review of Systems: Constitutional: Denies fever or chills Eyes: Denies redness or eye pain HENT: Denies nasal congestion or sore throat Respiratory: Denies cough or shortness of breath Cardiovascular: Denies chest pain or palpitations GI: Denies abdominal pain, nausea, or vomiting : Denies dysuria or hematuria Musculoskeletal: Denies back pain or joint pain Integument: Denies rash or skin lesions Neurologic: Denies headache, focal weakness or sensory changes Complete systems were reviewed and found to be within normal limits, except as documented in this note. Current Medications: Current Meds: Current Medications Medications (Trade) Dose Ordered Sig/[facility] Start Time Stop Time Status Last Admin Dose Admin Fentanyl Citrate (Fentanyl 2ml Vial) 100 mcg STK-MED ONCE 12/21/20 12:41 12/21/20 12:41 DC Iohexol (Omnipaque 300 Mg/ml) 75 ml 1X ONCE 12/21/20 12:45 12/21/20 12:53 DC 12/21/20 13:46 75 ML Ondansetron HCl (Zofran) 4 mg 1X ONCE 12/21/20 12:45 12/21/20 12:46 DC 12/21/20 12:44 4 MG Sodium Chloride 1,000 ml @ 1,000 mls/hr Q1H 12/21/20 11:15 12/21/20 12:14 DC 12/21/20 12:12 1,000 MLS/HR Allergies: Allergies: Allergies Coded Allergies Type Severity Reaction Last Updated Verified lisinopril Allergy Severe oral swelling 10/10/20 Yes Penicillins Allergy Intermediate 10/10/20 Yes Physical Exam: PE: Constitutional: Well developed, well nourished, no acute distress, non-toxic appearance HENT: Normocephalic, atraumatic Eyes: PERRL, EOMI, conjunctiva normal, no discharge Neck: Normal range of motion, no tenderness, supple Lungs & Thorax: No respiratory distress, equal chest rise and fall Abdomen: Soft, no tenderness Skin: Warm, dry, no erythema, no rash Back: No tenderness, no CVA tenderness Extremities: No tenderness, ROM intact, no edema Neurologic: Alert and oriented X 3, normal motor function, normal sensory function, no focal deficits noted Psychologic: Affect normal, judgment normal Current Patient Data: Labs: Laboratory Tests Test 12/21/20 12:08 12/21/20 12:58 White Blood Count 7.7 x10^3/uL (4.0-11.0) Red Blood Count 5.12 x10^6/uL (3.50-5.40) Hemoglobin 15.8 g/dL (12.0-15.5) H Hematocrit 48.2 % (36.0-47.0) H Mean Corpuscular Volume 94 fL (79-100) Mean Corpuscular Hemoglobin 31 pg (25-35) Mean Corpuscular Hemoglobin Concent 33 g/dL (31-37) Red Cell Distribution Width 15.0 % (11.5-14.5) H Platelet Count 230 x10^3/uL (140-400) Neutrophils (%) (Auto) 49 % (31-73) Lymphocytes (%) (Auto) 34 % (24-48) Monocytes (%) (Auto) 13 % (0-9) H Eosinophils (%) (Auto) 4 % (0-3) H Basophils (%) (Auto) 1 % (0-3) Neutrophils # (Auto) 3.7 x10^3uL (1.8-7.7) Lymphocytes # (Auto) 2.6 x10^3/uL (1.0-4.8) Monocytes # (Auto) 1.0 x10^3/uL (0.0-1.1) Eosinophils # (Auto) 0.3 x10^3/uL (0.0-0.7) Basophils # (Auto) 0.1 x10^3/uL (0.0-0.2) Lactic Acid Level 1.0 mmol/L (0.4-2.0) Sodium Level 144 mmol/L (136-145) Potassium Level 3.4 mmol/L (3.5-5.1) L Chloride Level 109 mmol/L (98-107) H Carbon Dioxide Level 28 mmol/L (21-32) Anion Gap 7 (6-14) Blood Urea Nitrogen 8 mg/dL (7-20) Creatinine 0.7 mg/dL (0.6-1.0) Estimated GFR (Cockcroft-Gault) 88.2 BUN/Creatinine Ratio 11 (6-20) Glucose Level 82 mg/dL (70-99) Calcium Level 8.5 mg/dL (8.5-10.1) Magnesium Level 2.0 mg/dL (1.8-2.4) Total Bilirubin 0.8 mg/dL (0.2-1.0) Aspartate Amino Transferase (AST) 29 U/L (15-37) Alanine Aminotransferase (ALT) 38 U/L (14-59) Alkaline Phosphatase 130 U/L (46-116) H Total Protein 6.9 g/dL (6.4-8.2) Albumin 3.5 g/dL (3.4-5.0) Albumin/Globulin Ratio 1.0 (1.0-1.7) Lipase 366 U/L (73-393) Vital Signs: Vital Signs Date Time Temp Pulse Resp B/P (MAP) Pulse Ox O2 Delivery O2 Flow Rate FiO2 12/21/20 13:15 16 99 12/21/20 12:22 98.5 82 136/90 (105) Room Air EKG: EKG: [] Radiology/Procedures: Radiology/Procedures: PROCEDURE: CT ABD PELV W/ IV CONTRST ONLY EXAM: Abdomen and pelvis CT with intravenous contrast. HISTORY: Right lower quadrant pain. TECHNIQUE: Computed tomographic images of the abdomen and pelvis were obtained following the administration of intravenous contrast. Multiplanar reformatting was performed. *One or more of the following individualized dose reduction techniques were utilized for this examination: 1. Automated exposure control. 2. Adjustment of the mA and/or kV according to patient size. 3. Use of iterative reconstruction technique. COMPARISON: 10/10/2020. FINDINGS: Evaluation of the lower thorax demonstrates lingular and right middle lobe atelectasis or scarring. There is posterior dependent and basilar at electasis. There is no infiltrate or pleural effusion. No hepatic lesion is seen. The gallbladder, pancreas, spleen, stomach, adrenal glands and kidneys are unremarkable. There is no appendicitis. There is no bowel obstruction or abnormal bowel wall thickening. There are few distal colonic diverticula. The urinary bladder, uterus and adnexal regions are unremarkable. The aorta is normal in caliber. There is no lymphadenopathy. There is no suspicious osseous lesion. There is degenerative change at the lumbosacral junction. IMPRESSION: 1. No acute abdominal or pelvic finding. 2. Distal colonic diverticulosis. Electronically signed by: Stephanie Pettit MD (12/21/2020 2:14 PM) [facility] Heart Score: C/O Chest Pain: N/A Course & Med Decision Making: Course & Med Decision Making Pertinent Labs and Imaging studies reviewed. (See chart for details) Patient stable for discharge with outpatient follow-up with PCP. Discussed findings and plan with patient, who acknowledges understanding and agreement. Dragon Disclaimer: [employer] Disclaimer: This electronic medical record was generated, in whole or in part, using a voice recognition dictation system. Departure Departure: Impression: Primary Impression: Abdominal pain Qualified Codes: R10.30 - Lower abdominal pain, unspecified Additional Impressions: Urinary tract infection Qualified Codes: N30.00 - Acute cystitis without hematuria Nausea Disposition: HOME / SELF CARE / HOMELESS Condition: STABLE Referrals: KUSUM ALBARRAN (PCP) Patient Instructions: Abdominal Pain, Abkn-rn-Dahi, Nausea, Adult, Gmsf-mn-Mjpn, Urinary Tract Infection, Lvwx-cw-Edmd Scripts Phenazopyridine Hcl (PYRIDIUM) 200 Mg Tablet 200 MG PO TID for Dysuria for 2 Days, #6 TAB Prov: MAYURI WOLF DO 12/21/20 Cephalexin (CEPHALEXIN) 500 Mg Capsule 1 CAP PO TID for UTI, #21 CAP Prov: MAYURI WOLF DO 12/21/20 Ondansetron (ONDANSETRON ODT) 4 Mg Tab.rapdis 1 TAB PO PRN Q6-8HRS PRN for NAUSEA, #16 TAB Prov: MAYURI WOLF DO 12/21/20 MAYURI WOLF DO Dec 21, 2020 14:31
[2020-12-21 15:46] LABS: BILIRUBIN,URINE NEG (NEG); CLARITY,URINE HAZY; COLOR,URINE YELLOW; GLUCOSE,URINE >=1000 mg/dL (NEG); NITRITE,URINE NEG (NEG); UROBILINOGEN,URINE 0.2 mg/dL (0.2 mg/dL)
[2020-12-21 15:49] LABS: BACTERIA,URINE FEW /HPF (0-FEW); RBC,URINE 0 /HPF (0-2); SQUAMOUS EPITHELIAL CELL,UR FEW /LPF; WBC,URINE 20-40 /HPF (0-4)
[2020-12-21] MEDS ORDERED: PHENAZOPYRIDINE 200 MG TABLET. PO ONE (16:00)
[2020-12-21] MEDS ORDERED: CEPHALEXIN 250 MG CAPSULE PO ONE (16:00)
[2020-12-21] MEDS ORDERED: PHEN-318 PO (16:07)
[2020-12-21] MEDS ORDERED: ONDA4TAB12 PO (16:07)
[2020-12-21] MEDS ORDERED: CEPH500C PO (16:07)
== END 2020-12-21 16:43 | disposition home or self-care (01) ==
LOC: ER 11:09
DX: N30.00 Acute cystitis without hematuria (principal); R10.31 Right lower quadrant pain; K57.30 Diverticulosis of large intestine without perforation or abscess without bleeding; E11.9 Type 2 diabetes mellitus without complications; E78.5 Hyperlipidemia, unspecified; G35 Multiple sclerosis; Z88.8 Allergy status to other drugs, medicaments and biological substances; Z88.0 Allergy status to penicillin
CPT/HCPCS: 36415; 74177; 80053; 81001; 83605; 83690; 83735; 85025; 87077; 87086; 87186; 96361; 96374; 96375; 96376; 99285; J2405; J3010; J7030; Q9967

== ENCOUNTER 2021-05-03 19:37 | Emergency (ER) | payer OTHER, MEDICAID ==
[~2021-05-03] VITALS: Ht 167.6 cm; Wt 93.0 kg
[~2021-05-03 19:37] MED LIST changes: +CEPH500C PO; +ONDA4TAB12 PO; +PHEN-318 PO
[2021-05-03] MEDS ORDERED: ASPIRIN CHEWABLE 81 MG TABLET. PO ONE (19:45)
--- NOTE | 2021-05-03 20:03 | PHYS DOC ---
Past History Past Medical History: Other Additional Past Medical Histor: MS, HLD, IDDM Past Surgical History: Tonsillectomy Additional Past Surgical Histo: Ex-Lap Smoking: Non-smoker Alcohol Use: None Drug Use: None General Adult EDM: Chief Complaint: CHEST PAIN HPI: HPI: 50-year-old female presents with chest pain that started about an hour ago. She came into the bathroom and was having some right shoulder muscle spasms. She then got a central chest heaviness and pressure feeling. She got diaphoretic and this was very concerning to her. She called EMS and came in by ambulance. Patient still has moderate chest heaviness with occasional sharp pinching. She tells me that she has been having intermittent pains in the upper sternum that she says was due to some previous bruising. It has been tender to palpation for a few days. She denies fever or chills. No changes in her medications. She has been taking everything as prescribed. Review of Systems: Review of Systems: Constitutional: Denies fever or chills Eyes: Denies change in visual acuity HENT: Denies nasal congestion or sore throat Respiratory: Denies cough or shortness of breath Cardiovascular: Chest pain GI: Denies abdominal pain, nausea, vomiting, bloody stools or diarrhea : Denies dysuria Musculoskeletal: Denies back pain or joint pain Integument: Denies rash Neurologic: Denies headache, focal weakness or sensory changes Endocrine: Denies polyuria or polydipsia Lymphatic: Denies swollen glands Psychiatric: Denies depression or anxiety Current Medications: Current Meds: Current Medications Medications (Trade) Dose Ordered Sig/[facility] Start Time Stop Time Status Last Admin Dose Admin Aspirin (Aspirin Chewable) 324 mg 1X ONCE 05/03/21 19:45 05/03/21 19:47 DC Allergies: Allergies: Allergies Coded Allergies Type Severity Reaction Last Updated Verified lisinopril Allergy Severe oral swelling 10/10/20 Yes Penicillins Allergy Intermediate 10/10/20 Yes Physical Exam: PE: Constitutional: Well developed, well nourished, obese, no acute distress, non- toxic appearance. [] HENT: Normocephalic, atraumatic, bilateral external ears normal, oropharynx [address], no oral exudates, nose normal. [] Eyes: PERRLA, EOMI, conjunctiva normal, no discharge. [] Neck: Normal range of motion, no tenderness, supple, no stridor. [] Cardiovascular: Heart rate 90, regular rhythm, no murmur [] Lungs & Thorax: Bilateral breath sounds clear to auscultation [] Abdomen: Bowel sounds normal, soft, no tenderness, no masses, no pulsatile masses. [] Skin: Warm, dry, no erythema, no rash. [] Back: No tenderness, no CVA tenderness. [] Extremities: No tenderness, no cyanosis, no clubbing, ROM intact, no edema. [] Neurologic: Alert and oriented X 3, normal motor function, normal sensory function, no focal deficits noted. [] Psychologic: Affect normal, judgement normal, mood concerned. [] Current Patient Data: Vital Signs: Vital Signs Date Time Temp Pulse Resp B/P (MAP) Pulse Ox O2 Delivery O2 Flow Rate FiO2 05/03/21 19:43 98.4 93 16 149/85 93 Room Air EKG: EKG: Sinus rhythm, rate 90, normal axis, no ST elevation or depression. [] Radiology/Procedures: Radiology/Procedures: [] Heart Score: C/O Chest Pain: Yes HEART Score for Chest Pain: HEART Score for Chest Pain Response (Comments) Value History Slighlty/Non-Suspicious 0 ECG Normal 0 Age >45 - < 65 1 Risk Factors 1 or 2 Risk Factors 1 Troponin < Normal Limit 0 Total 2 Risk Factors: Risk Factors: DM, Current or recent (<one month) smoker, HTN, HLP, family history of CAD, obesity. Risk Scores: Score 0 - 3: 2.5% MACE over next 6 weeks - Discharge Home Score 4 - 6: 20.3% MACE over next 6 weeks - Admit for Clinical Observation Score 7 - 10: 72.7% MACE over next 6 weeks - Early Invasive Strategies Course & Med Decision Making: Course & Med Decision Making Pertinent Labs and Imaging studies reviewed. (See chart for details) The patient's EKG is unremarkable. Her labs are unremarkable. Her troponin is negative. Her chest x-ray is negative for acute findings. This is likely exacerbation of her musculoskeletal injury. I do not see signs of cardiopulmonary disease at this time. Her heart score is a 2. She is stable for discharge at this time. [] Dragon Disclaimer: Dragon Disclaimer: This electronic medical record was generated, in whole or in part, using a voice recognition dictation system. Departure Departure: Impression: Primary Impression: Chest pain Qualified Codes: R07.89 - Other chest pain Disposition: HOME / SELF CARE / HOMELESS Condition: STABLE Referrals: KUSUM ALBARRAN (PCP) Patient Instructions: Chest Pain (Nonspecific), [id number] HEIDY MINOR DO May 03, 2021 20:03
[2021-05-03 20:40] VITALS: BP 132/72
[2021-05-03 20:41] LABS: CALCIUM 8.5 mg/dL (8.5-10.1); CREATININE 0.8 mg/dL (0.6-1.0); GFR 75.6; POTASSIUM 3.5 mmol/L (3.5-5.1)
[2021-05-03 20:43] LABS: BASO # 0.1 x10^3/uL (0.0-0.2); BASO % 1 % (0-3); EOS # 0.2 x10^3/uL (0.0-0.7); EOS % 3 % (0-3); HEMATOCRIT 45.4 % (36.0-47.0); HEMOGLOBIN 15.1 g/dL (12.0-15.5); LYMPH % 25 % (24-48); MEAN CORPUSCULAR HEMOGLOBIN 31 pg (25-35); MEAN CORPUSCULAR HGB CONC 33 g/dL (31-37); MEAN CORPUSCULAR VOLUME 92 fL (79-100); MONO % 12 % (0-9); NEUT # 4.6 x10^3uL (1.8-7.7); NEUT % 59 % (31-73); PLATELET COUNT 242 x10^3/uL (140-400); RED BLOOD COUNT 4.93 x10^6/uL (3.50-5.40); RED CELL DISTRIBUTION WIDTH 14.2 % (11.5-14.5); WHITE BLOOD COUNT 7.9 x10^3/uL (4.0-11.0)
[2021-05-03 20:46] LABS: ALBUMIN 3.9 g/dL (3.4-5.0); ALBUMIN/GLOBULIN RATIO 1.3 (1.0-1.7); TOTAL BILIRUBIN 0.7 mg/dL (0.2-1.0); TOTAL PROTEIN 6.9 g/dL (6.4-8.2)
--- NOTE | 2021-05-03 21:59 | RAD ---
XR CHEST 1V INDICATION: CP . COMPARISON STUDY: None. FINDINGS: Lungs: Normal lung volume. No pulmonary mass or consolidation. The tracheobronchial tree and hilar st ructures are normal. Pleura: No pleural effusion or pneumothorax. Heart and Mediastinum: The cardiomediastinal silhouette is normal. The great vessels of the thorax ar e normal. Bones and Soft Tissues: The bones and soft tissues are within normal limits. IMPRESSION: No acute cardiopulmonary process. Electronically signed by: Andrea eSals MD (05/03/2021 9:56 PM) [facility]
--- NOTE | 2021-05-04 03:05 | EKG ---
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
== END 2021-05-03 21:26 | disposition home or self-care (01) ==
LOC: ER 19:37
DX: R07.89 Other chest pain (principal); Z88.0 Allergy status to penicillin; Z88.8 Allergy status to other drugs, medicaments and biological substances
CPT/HCPCS: 36415; 71045; 80053; 84484; 85025; 93005; 99285-25

== ENCOUNTER 2021-10-20 11:29 | Emergency (ER) | payer OTHER ==
[~2021-10-20] VITALS: Ht 175.3 cm; Wt 90.0 kg
[~2021-10-20 11:29] MED LIST changes: -DULO60CA6 PO; +DULO60CA7 PO
[2021-10-20 11:43] VITALS: BP 144/87
[2021-10-20] MEDS ORDERED: IBUPROFEN 600 MG TABLET. PO ONE (11:45)
--- NOTE | 2021-10-20 11:46 | PHYS DOC ---
Past History Past Medical History: Other Additional Past Medical Histor: MS, HLD, IDDM (JESICA LEVI APRN) Past Surgical History: Tonsillectomy Additional Past Surgical Histo: Ex-Lap (JESICA LEVI APRN) Smoking: Non-smoker Alcohol Use: None Drug Use: None (JESICA LEVI APRN) General Adult HPI: HPI: Patient is a 51-year-old female that presents today with right second third and fourth finger pain. Patient states that she was opening a cabinet and multiple cans fell from the cabinet and onto her third fourth and second fingers on the right hand, she is concerned because there is they are painful there is a small abrasion to the proximal joint on the third finger. Patient is able to move the fingers but they are painful, she also has some bruising noted along the fingers as well. Unknown tetanus status (JESICA LEVI APRN) Review of Systems: Review of Systems: Constitutional: Denies fever or chills Eyes: Denies change in visual acuity HENT: Denies nasal congestion or sore throat Respiratory: Denies cough or shortness of breath Cardiovascular: Denies chest pain or edema GI: Denies abdominal pain, nausea, vomiting, bloody stools or diarrhea : Denies dysuria Musculoskeletal: Right second, third, and fourth finger pain Integument: Denies rash Neurologic: Denies headache, focal weakness or sensory changes Endocrine: Denies polyuria or polydipsia Lymphatic: Denies swollen glands Psychiatric: Denies depression or anxiety (JESICA ELVI APRN) Current Medications: Current Meds: Current Medications Medications (Trade) Dose Ordered Sig/[facility] Start Time Stop Time Status Last Admin Dose Admin Ibuprofen (Motrin) 600 mg 1X ONCE 10/20/21 11:45 10/20/21 11:46 UNV (JESICA LEVI APRN) Allergies: Allergies: Allergies Coded Allergies Type Severity Reaction Last Updated Verified lisinopril Allergy Severe oral swelling 10/10/20 Yes Penicillins Allergy Intermediate 10/10/20 Yes (JESICA LEVI APRN) Physical Exam: PE: Constitutional: Well developed, well nourished, no acute distress, non-toxic appearance. [] HENT: Normocephalic, atraumatic, bilateral external ears normal, oropharynx moist, no oral exudates, nose normal. [] Eyes: PERRLA, EOMI, conjunctiva normal, no discharge. [] Neck: Normal range of motion, no tenderness, supple, no stridor. [] Cardiovascular:Heart rate regular rhythm, no murmur [] Lungs & Thorax: Bilateral breath sounds clear to auscultation [] Abdomen: Bowel sounds normal, soft, no tenderness, no masses, no pulsatile masses. [] Skin: Warm, dry, no erythema, no rash. [] Back: No tenderness, no CVA tenderness. [] Extremities: Right fingers second, third, and fourth, ecchymosis noted small abrasion along the proximal joint of the third finger noted no active bleeding, bruising noted on the fourth finger near the proximal end of the finger. Cap refill on all three fingers is less than 2 seconds sensory is intact radial pulses 2+ and that arm. Neurologic: Alert and oriented X 3, normal motor function, normal sensory function, no focal deficits noted. [] Psychologic: Affect normal, judgement normal, mood normal. [] (JESICA LEVI APRN) Current Patient Data: Vital Signs: Vital Signs Date Time Temp Pulse Resp B/P (MAP) Pulse Ox O2 Delivery O2 Flow Rate FiO2 10/20/21 11:43 98.1 80 18 144/87 (106) 99 Room Air (JESICA LEVI APRN) EKG: EKG: [] (JESICA LEVI APRN) Radiology/Procedures: Radiology/Procedures: [REASON: cans fell on fingers, pain PROCEDURE: FINGER(S) RIGHT XR FINGER(S)_RIGHT 2+VIEWS Clinical indications: Reason: cans fell on fingers, pain / Spl. Instructions: / History: Findings: No acute fracture or dislocation or osteolytic process is evident. The scaphoid bone is intact. IMPRESSION: No acute osseous abnormality is evident. Electronically signed by: Asad Almonte MD (10/20/2021 12:19 PM) [id number] ] (JESICA LEVI APRN) Heart Score: C/O Chest Pain: N/A Risk Factors: Risk Factors: DM, Current or recent (<one month) smoker, HTN, HLP, family history of CAD, obesity. Risk Scores: Score 0 - 3: 2.5% MACE over next 6 weeks - Discharge Home Score 4 - 6: 20.3% MACE over next 6 weeks - Admit for Clinical Observation Score 7 - 10: 72.7% MACE over next 6 weeks - Early Invasive Strategies (JESICA LEVI APRN) Course & Med Decision Making: Course & Med Decision Making Pertinent Labs and Imaging studies reviewed. (See chart for details) Reviewed radiological findings did not see anything acute, patient is in no acute distress able to move fingers without any difficulty does notice a small abrasion on the third finger she can treat that with generalized wound care, follow-up with her primary care physician and 3 to 5 days if symptoms do not get any better. (JESICA LEVI APRN) Course & Med Decision Making I was the Attending physician on the above date of service of this patient. This patient was evaluated, examined, treated, and dispositioned from the emergency department by the mid-level practitioner. Although I was working at the time , no assistance was requested. Electronically signed, Ivan Potter DO (IVAN POTTER DO) Natali Disclaimer: Dragashanti Disclaimer: This electronic medical record was generated, in whole or in part, using a voice recognition dictation system. (JESICA LEVI APRN) Departure Departure: Impression: Primary Impression: Contusion of finger of right hand Qualified Codes: S60.031A - Contusion of right middle finger without damage to nail, initial encounter Disposition: HOME / SELF CARE / HOMELESS Condition: STABLE Referrals: KUSUM ALBARRAN (PCP) Patient Instructions: Hand Contusion Additional Instructions: Ice 20 minutes on 3-4 times daily to help with localized pain and swelling [id number] Tylenol and/or ibuprofen as needed for pain per label directed Follow-up with your primary care physician if your symptoms do not improve after 3 to 5 days. JESICA LEVI APRN Oct 20, 2021 11:46 IVAN POTTER DO Oct 25, 2021 06:41
[2021-10-20] MEDS ORDERED: DIPHTH,PERTUSS(ACELL),TET TOX 0.5 ML DISP.SYRIN. VAX IM ONE (12:15)
--- NOTE | 2021-10-20 12:22 | RAD ---
XR FINGER(S)_RIGHT 2+VIEWS Clinical indications: Reason: cans fell on fingers, pain / Spl. Instructions: / History: Findings: No acute fracture or dislocation or osteolytic process is evident. The scaphoid bone is in tact. IMPRESSION: No acute osseous abnormality is evident. Electronically signed by: Asad Almonte MD (10/20/2021 12:19 PM) [id number]
== END 2021-10-20 13:20 | disposition home or self-care (01) ==
LOC: ER 11:29
DX: S60.021A Contusion of right index finger without damage to nail, initial encounter (principal); S60.031A Contusion of right middle finger without damage to nail, initial encounter; S60.041A Contusion of right ring finger without damage to nail, initial encounter; G35 Multiple sclerosis; E78.5 Hyperlipidemia, unspecified; E11.9 Type 2 diabetes mellitus without complications; Z88.0 Allergy status to penicillin; Z88.8 Allergy status to other drugs, medicaments and biological substances; W20.8XXA Other cause of strike by thrown, projected or falling object, initial encounter; Y93.89 Activity, other specified; Y92.89 Other specified places as the place of occurrence of the external cause; Y99.8 Other external cause status
CPT/HCPCS: 73140; 90471; 90715; 99283

== ENCOUNTER 2022-01-01 16:16 | Emergency (ER) | payer OTHER ==
[~2022-01-01] VITALS: Ht 175.3 cm; Wt 90.0 kg
[~2022-01-01 16:16] MED LIST changes: -EMPA10TA PO; +EMPA10TA3 PO
[2022-01-01] MEDS ORDERED: ONDANSETRON PF 4 MG/2 ML VIAL. ONE (18:05)
[2022-01-01] MEDS: MORPHINE SULFATE 4 MG/ML DISP.SYRIN. IV ONE ×2 (18:09→21:45)
[2022-01-01] MEDS: IV NORMAL SALINE 1,000ML 1,000 ML IV ONE (18:10)
[2022-01-01 18:18] LABS: BASO # 0.1 x10^3/uL (0.0-0.2); BASO % 1 % (0-3); EOS # 0.3 x10^3/uL (0.0-0.7); EOS % 4 % (0-3); HEMATOCRIT 46.2 % (36.0-47.0); HEMOGLOBIN 15.6 g/dL (12.0-15.5); LYMPH # 2.5 x10^3/uL (1.0-4.8); LYMPH % 32 % (24-48); MEAN CORPUSCULAR HEMOGLOBIN 31 pg (25-35); MEAN CORPUSCULAR HGB CONC 34 g/dL (31-37); MEAN CORPUSCULAR VOLUME 93 fL (79-100); MONO % 12 % (0-9); NEUT # 4.1 x10^3uL (1.8-7.7); NEUT % 51 % (31-73); PLATELET COUNT 246 x10^3/uL (140-400); RED CELL DISTRIBUTION WIDTH 13.2 % (11.5-14.5)
--- NOTE | 2022-01-01 18:32 | PHYS DOC ---
Past History Past Medical History: Other Additional Past Medical Histor: MS, HLD, IDDM (YESSICA ELLIOTT APRN) Past Surgical History: Tonsillectomy, Tubal ligation Additional Past Surgical Histo: Ex-Lap (YESSICA ELLIOTT APRN) Smoking: Non-smoker Alcohol Use: None Drug Use: None (YESSICA ELLIOTT APRN) General Adult EDM: Chief Complaint: LOWER EXT PAIN HPI: HPI: Patient is a 51-year-old female who presents with bilateral lower extremity pain. Patient also has a "zinging sensation" of her right arm. Patient has a history of MS and is afraid that she is having a flareup. Patient called her PCP made appointment for tomorrow and was told to come in [facility]. Patient has no history of DVTs or PEs. Denies recent travel. Denies chest pain or shortne ss of breath. (YESSICA ELLIOTT APRN) Review of Systems: Review of Systems: Constitutional: Denies fever or chills Eyes: Denies change in visual acuity HENT: Denies nasal congestion or sore throat Respiratory: Denies cough or shortness of breath Cardiovascular: Denies chest pain or edema GI: Denies abdominal pain, nausea, vomiting, bloody stools or diarrhea : Denies dysuria Musculoskeletal: Denies back pain or joint pain Integument: Denies rash Neurologic: Denies headache, focal weakness or sensory changes Endocrine: Denies polyuria or polydipsia Lymphatic: Denies swollen glands Psychiatric: Denies depression or anxiety (YESSICA ELLIOTT APRN) Current Medications: Current Meds: Current Medications Medications (Trade) Dose Ordered Sig/[facility] Start Time Stop Time Status Last Admin Dose Admin Morphine Sulfate (Morphine 4mg Syringe) 4 mg 1X ONCE 01/01/22 18:00 01/01/22 18:01 DC 01/01/22 18:09 4 MG Ondansetron HCl (Zofran) 4 mg STK-MED ONCE 01/01/22 18:05 01/01/22 18:06 DC Sodium Chloride 1,000 ml @ 1,000 mls/hr 1X ONCE 01/01/22 18:00 01/01/22 18:59 01/01/22 18:10 1,000 MLS/HR (YESSICA ELLIOTT APRN) Allergies: Allergies: Allergies Coded Allergies Type Severity Reaction Last Updated Verified lisinopril Allergy Severe oral swelling 10/10/20 Yes Penicillins Allergy Intermediate 10/10/20 Yes (YESSICA ELLIOTT HOSPICE PLAN ADMINISTRATOR) Physical Exam: PE: Constitutional: Well developed, well nourished, no acute distress, non-toxic appearance. [] HENT: Normocephalic, atraumatic, bilateral external ears normal, oropharynx moist, no oral exudates, nose normal. [] Eyes: PERRLA, EOMI, conjunctiva normal, no discharge. [] Neck: Normal range of motion, no tenderness, supple, no stridor. [] Cardiovascular:Heart rate regular rhythm, no murmur [] Lungs & Thorax: Bilateral breath sounds clear to auscultation [] Abdomen: Bowel sounds normal, soft, no tenderness, no masses, no pulsatile masses. [] Skin: Warm, dry, no erythema, no rash. [] Back: No tenderness, no CVA tenderness. [] Extremities: Lower leg tenderness, ROM intact, no swelling noted Neurologic: Alert and oriented X 3, normal motor function, sensations intact Psychologic: Affect normal, judgement normal, mood normal. [] (YESSICA ELLIOTT HOSPICE PLAN ADMINISTRATOR) Current Patient Data: Labs: Laboratory Tests Test 01/01/22 17:58 White Blood Count 8.0 x10^3/uL (4.0-11.0) Red Blood Count 5.00 x10^6/uL (3.50-5.40) Hemoglobin 15.6 g/dL (12.0-15.5) H Hematocrit 46.2 % (36.0-47.0) Mean Corpuscular Volume 93 fL (79-100) Mean Corpuscular Hemoglobin 31 pg (25-35) Mean Corpuscular Hemoglobin Concent 34 g/dL (31-37) Red Cell Distribution Width 13.2 % (11.5-14.5) Platelet Count 246 x10^3/uL (140-400) Neutrophils (%) (Auto) 51 % (31-73) Lymphocytes (%) (Auto) 32 % (24-48) Monocytes (%) (Auto) 12 % (0-9) H Eosinophils (%) (Auto) 4 % (0-3) H Basophils (%) (Auto) 1 % (0-3) Neutrophils # (Auto) 4.1 x10^3uL (1.8-7.7) Lymphocytes # (Auto) 2.5 x10^3/uL (1.0-4.8) Monocytes # (Auto) 1.0 x10^3/uL (0.0-1.1) Eosinophils # (Auto) 0.3 x10^3/uL (0.0-0.7) Basophils # (Auto) 0.1 x10^3/uL (0.0-0.2) Vital Signs: Vital Signs Date Time Temp Pulse Resp B/P (MAP) Pulse Ox O2 Delivery O2 Flow Rate FiO2 01/01/22 18:09 16 91 (YESSICA ELLIOTT APRN) EKG: EKG: [] (YESSICA ELLIOTT APRN) Radiology/Procedures: Radiology/Procedures: [] (YESSICA ELLIOTT APRN) Heart Score: C/O Chest Pain: No Risk Factors: Risk Factors: DM, Current or recent (<one month) smoker, HTN, HLP, family histo ry of CAD, obesity. Risk Scores: Score 0 - 3: 2.5% MACE over next 6 weeks - Discharge Home Score 4 - 6: 20.3% MACE over next 6 weeks - Admit for Clinical Observation Score 7 - 10: 72.7% MACE over next 6 weeks - Early Invasive Strategies (YESSICA ELLIOTT APRN) Course & Med Decision Making: Course & Med Decision Making Pertinent Labs and Imaging studies reviewed. (See chart for details) [] 51-year-old female presents with bilateral lower extremity pain. Patient is also having a "zinging sensation" in her right arm. Patient has history of MS and is afraid that she is having a flareup. Work-up in ER consist of CBC, CMP, urinalysis. Pain and nausea were treated. Patient's potassium was decreased at 3.0. Patient given 40 mill equivalents of potassium. All other results were unremarkable. Discussed with patient. Gerald farfan is still reporting pain. Patient given second dose of pain medication and sent home with a prescription of hydrocodone. Advised patient to call PCP make a follow-up appointment for tomorrow. Patient appreciative and okay with discharge plan. (YESSICA ELLIOTT APRN) Course & Med Decision Making Do not see or evaluate patient. Did not discuss patient with ETL DATA ARCHITECT. Generally agree with ETL DATA ARCHITECT's work-up and disposition per note (JADIEL PERALTA MD) Cristinaon Disclaimer: Dragon Disclaimer: This electronic medical record was generated, in whole or in part, using a voice recognition dictation system. (YESSICA ELLIOTT APRN) Departure Departure: Impression: Primary Impression: Arm pain, right Disposition: HOME / SELF CARE / HOMELESS Condition: STABLE Referrals: KUSUM ALBARRAN (PCP) Patient Instructions: Pain, Neuropathic-Brief Additional Instructions: Please follow-up with your PCP for further management. EMERGENCY DEPARTMENT GENERAL DISCHARGE INSTRUCTIONS Thank you for coming to [facility] (ED) today and trusting us with you care. We trust that you had a positivie experience in our Emergency Department. If you wish to speak to the department management, you may call the director at [phone]. YOUR FOLLOW UP INSTRUCTIONS ARE FOLLOWS: 1. Do you have a private Doctor? If you do not have a private doctor, please ask for a resource list of physicians or clinics that may be able to assist you with follow up care. 2. The Emergency Physician has interpreted your x-rays. The X-Ray specialist will also review them. If there is a change in the findings, you will be notified in 48 hours when at all possible. 3. A lab test or culture has been done, your results will be reviewed and you will be notified if you need a change in treatment. ADDITIONAL INSTRUCTIONS AND INFORMATION: 1. Your care today has been supervised by a physician who is specially trained in emergency care. Many problems require more than one evaluation for a complete diagnosis and treatment. We recommend that you schedule your follow up appointment as recommended to ensure complete treatment of you illness or injury. If you are unable to obtain follow up care and continue to have a problem, or if your condition worsens, we recommend that you return to the ED. 2. We are not able to safely determine your condition over the phone nor are we able to give sound medical advice over the phone. For these safety reasons, if you call for medical advice we will ask you to come to the ED for further evaluation. 3. If you have any questions regarding these discharge instructions please call the ED at [phone]. SAFETY INFORMATION: In the interest of safety, wellness, and injury prevention; we encourage you to wear your sealbelt, if you smoke; quite smoking, and we encourage family to use a protective helmet for bicycling and other sporting events that present an increased risk for head injury. IF YOUR SYMPTOMS WORSEN OR NEW SYMPTOMS DEVELOP, OR YOU HAVE CONCERNS ABOUT YOUR CONDITION; OR IF YOUR CONDITION WORSENS WHILE YOU ARE WAITING FOR YOUR FOLLOW UP APPOINTMENT; EITHER CONTACT YOUR PRIMARY CARE DOCTOR, THE PHYSICIAN WHOSE NAME AND NUMBER YOU WERE GIVEN, OR RETURN TO THE ED IMMEDIATELY. Scripts Hydrocodone Bit/Acetaminophen (HYDROCODONE-APAP 5-325 ) 1 Each Tablet 1-2 TAB PO PRN Q6HRS PRN for PAIN for 3 Days, #12 TAB 0 Refills Prov: YESSICA ELLIOTT APRN 01/01/22 YESSICA ELLIOTT APRN Jan 01, 2022 18:32 JADIEL PERALTA MD Jan 01, 2022 22:17
[2022-01-01 18:53] LABS: CALCIUM 8.6 mg/dL (8.5-10.1); CREATININE 0.7 mg/dL (0.6-1.0); GFR 87.9
[2022-01-01 18:58] LABS: ALBUMIN 3.3 g/dL (3.4-5.0); C REACTIVE PROTEIN 2.6 mg/L (0-3.3); TOTAL BILIRUBIN 0.7 mg/dL (0.2-1.0); TOTAL PROTEIN 6.7 g/dL (6.4-8.2)
[2022-01-01] MEDS ORDERED: HYDR-2155 PO (20:30)
[2022-01-01] MEDS: POTASSIUM CHLORIDE 20 MEQ TABLET.ER. PO ONE (21:41)
[2022-01-01 21:46] VITALS: BP 129/83
== END 2022-01-01 21:52 | disposition home or self-care (01) ==
LOC: ER 16:16
DX: M79.601 Pain in right arm (principal); M79.605 Pain in left leg; M79.604 Pain in right leg; E11.9 Type 2 diabetes mellitus without complications; E78.5 Hyperlipidemia, unspecified; G35 Multiple sclerosis; Z88.0 Allergy status to penicillin; Z88.8 Allergy status to other drugs, medicaments and biological substances
CPT/HCPCS: 36415; 80053; 85025; 86140; 96361; 96374; 96376; 99285; J2270; J7030